=== PATIENT | male | born 1955 | race Caucasian/White ===

== ENCOUNTER 2017-11-24 04:28 | Inpatient (IN) | payer OTHER ==
[~2017-11-24] VITALS: Ht 175.3 cm; Wt 54.0 kg
[~2017-11-24 04:28] MED LIST changes: -NOVOLOG SUBQ
--- NOTE | 2017-11-24 04:46 | ER Report ---
History and Physical Time Seen By MD: 04:42 Hx. of Stated Complaint: PT HAD LOW BS OF 53 AT HOUSE. PT HAD SEIZURE. HPI/ROS CHIEF COMPLAINT: Seizure HISTORY OF PRESENT ILLNESS: EMS called for seizure witnessed by family duration unknown exact nature of seizure unknown however patient was incontinent of both urine and stool and convulsions did occur blood glucose was found to be 53 1 amp of D50 was administered and subsequent glucose was 294. No witnessed seizures by EMS. EMS found him to be in a postictal state. Patient is awake and talking now and has no complaints. REVIEW OF SYSTEMS: Constitutional: No fever, no chills. Eyes: No discharge. ENT: No sore throat. Cardiovascular: No chest pain, no palpitations. Respiratory: No cough, no shortness of breath. Gastrointestinal: No abdominal pain, no vomiting. Genitourinary: No hematuria. Musculoskeletal: No back pain. Skin: No rashes. Neurological: No headache. Allergies: Coded Allergies: No Known Drug Allergies (Verified , 11/24/17) Home Meds Active Scripts Cephalexin Monohydrate (CEPHALEXIN) 500 Mg Cap, 500 MG PO Q6H for 7 Days, #28 CAP 0 Refills Prov:CLAUDE LOYD MD 09/08/17 Reported Medications Folic Acid (FOLIC ACID) 0.4 Mg Tablet, 0.4 MG PO 09/08/17 Sodium Bicarbonate (SODIUM BICARBONATE) 650 Mg Tablet 09/08/17 Olmesartan Medoxomil (Olmesartan Medoxomil) 20 Mg Tablet 09/08/17 Hydrochlorothiazide (HYDROCHLOROTHIAZIDE) 25 Mg Tablet 09/08/17 Metoprolol Tartrate (METOPROLOL TARTRATE) 50 Mg Tab 09/08/17 Insulin Degludec (Tresiba Flextouch U-200) 200 Unit/Ml (3 Ml) Insuln.pen 09/08/17 Hx Smoking: Yes (1PPD) Exposure to Second Hand Smoke?: No Hx Substance Use Disorder: No Hx Alcohol Use: Yes Constitutional Vital Sign - Last 24 Hours 11/24/17 11/24/17 11/24/17 11/24/17 04:32 04:33 04:58 05:28 Temp 98.0 Pulse 69 69 63 Resp 18 B/P (MAP) 135/71 135/71 (92) Pulse Ox 90 93 91 O2 Delivery Room Air Physical Exam General Appearance: The patient is alert, has no immediate need for airway protection and no signs of toxicity. Overall well-appearing no signs of ongoing postictal state Eyes: Pupils equal and round no pallor or injection. ENT, Mouth: Mucous membranes are moist. Respiratory: There are no retractions, lungs are clear to auscultation. Cardiovascular: Regular rate and rhythm. No murmurs gallops or rubs Gastrointestinal: Abdomen is soft and non tender, no masses, bowel sounds normal. Neurological: And O 4, cranial nerves II-12 intact, normal gross motor exam normal gross sensory exam no cerebellar deficits appreciated. Skin: Warm and dry, no rashes. Musculoskeletal: Neck is supple non tender. Extremities are nontender, nonswollen and have full range of motion. No edema appreciated DIFFERENTIAL DIAGNOSIS: After history and physical exam differential diagnosis was considered for seizure, hypoglycemia, other electrolyte disturbance, no signs of intracranial mass or hemorrhage. This is a Partial list of diagnoses considered. Medical Decision Making Data Points Result Diagram: 11/24/17 0436 11/24/17 0436 Laboratory Hematology Test 11/24/17 04:36 Red Blood Count 3.30 M/uL (4.00-5.60) Mean Corpuscular Volume 97.5 fL (80.0-96.0) Mean Corpuscular Hemoglobin 31.5 pg (26.0-33.0) Mean Corpuscular Hemoglobin Concent 32.3 g/dL (32.0-36.0) Red Cell Distribution Width 15.6 % (11.5-14.5) Mean Platelet Volume 10.4 fL (7.2-11.1) Neutrophils (%) (Auto) 76.7 % (39.4-72.5) Lymphocytes (%) (Auto) 12.4 % (17.6-49.6) Monocytes (%) (Auto) 6.0 % (4.1-12.4) Eosinophils (%) (Auto) 4.0 % (0.4-6.7) Basophils (%) (Auto) 0.9 % (0.3-1.4) Nucleated RBC Relative Count (auto) 0.0 /100WBC Neutrophils # (Auto) 9.6 K/uL (2.0-7.4) Lymphocytes # (Auto) 1.6 K/uL (1.3-3.6) Monocytes # (Auto) 0.8 K/uL (0.3-1.0) Eosinophils # (Auto) 0.5 K/uL (0.0-0.5) Basophils # (Auto) 0.1 K/uL (0.0-0.1) Nucleated RBC Absolute Count (auto) 0.00 K/uL Sodium Level 143 mmol/L (137-145) Potassium Level 3.6 mmol/L (3.5-5.0) Chloride Level 111 mmol/L (98-107) Carbon Dioxide Level 19 mmol/L (22-30) Blood Urea Nitrogen 36 mg/dl (9-21) Creatinine 3.20 mg/dl (0.66-1.25) Glomerular Filtration Rate Calc 19.8 Random Glucose 100 mg/dl (75-110) Calcium Level 8.3 mg/dl (8.4-10.2) Total Bilirubin 0.2 mg/dl (0.2-1.3) Aspartate Amino Transf (AST/SGOT) 182 U/L (0-35) Alanine Aminotransferase (ALT/SGPT) 93 U/L (0-56) Alkaline Phosphatase 136 U/L (0-126) Troponin I < 0.012 ng/ml Total Protein 5.9 gm/dl (6.3-8.2) Albumin 3.6 g/dl (3.5-5.0) Serum Alcohol < 10 mg/dl Chemistry Test 11/24/17 04:36 White Blood Count 12.6 k/uL (4.5-11.0) Red Blood Count 3.30 M/uL (4.00-5.60) Hemoglobin 10.4 g/dL (14.0-18.0) Hematocrit 32.2 % (42.0-52.0) Mean Corpuscular Volume 97.5 fL (80.0-96.0) Mean Corpuscular Hemoglobin 31.5 pg (26.0-33.0) Mean Corpuscular Hemoglobin Concent 32.3 g/dL (32.0-36.0) Red Cell Distribution Width 15.6 % (11.5-14.5) Platelet Count 261 K/uL (150-450) Mean Platelet Volume 10.4 fL (7.2-11.1) Neutrophils (%) (Auto) 76.7 % (39.4-72.5) Lymphocytes (%) (Auto) 12.4 % (17.6-49.6) Monocytes (%) (Auto) 6.0 % (4.1-12.4) Eosinophils (%) (Auto) 4.0 % (0.4-6.7) Basophils (%) (Auto) 0.9 % (0.3-1.4) Nucleated RBC Relative Count (auto) 0.0 /100WBC Neutrophils # (Auto) 9.6 K/uL (2.0-7.4) Lymphocytes # (Auto) 1.6 K/uL (1.3-3.6) Monocytes # (Auto) 0.8 K/uL (0.3-1.0) Eosinophils # (Auto) 0.5 K/uL (0.0-0.5) Basophils # (Auto) 0.1 K/uL (0.0-0.1) Nucleated RBC Absolute Count (auto) 0.00 K/uL Glomerular Filtration Rate Calc 19.8 Calcium Level 8.3 mg/dl (8.4-10.2) Total Bilirubin 0.2 mg/dl (0.2-1.3) Aspartate Amino Transf (AST/SGOT) 182 U/L (0-35) Alanine Aminotransferase (ALT/SGPT) 93 U/L (0-56) Alkaline Phosphatase 136 U/L (0-126) Troponin I < 0.012 ng/ml Total Protein 5.9 gm/dl (6.3-8.2) Albumin 3.6 g/dl (3.5-5.0) Serum Alcohol < 10 mg/dl Toxicology Test 11/24/17 04:36 Serum Alcohol < 10 mg/dl EKG/Imaging EKG Interpretation EKG O4 55 my read normal sinus rhythm rate of 69 normal OK QRS and QTc intervals no ST or T-wave changes to suggest ischemia or infarction ED Course/Re-evaluation ED Course Multiple glucose readings in the 50s here despite D5 drip D50 boluses and oral orange juice, pending meal. 11/24/2017 6:55:32 am case discussed with hospitalist Dr. Hickey who is accepting for admission. Decision to Disposition Date: Nov 24, 2017 Decision to Disposition Time: 06:55 Depart Departure Latest Vital Signs Vital Signs Date Time Temp Pulse Resp B/P (MAP) Pulse Ox O2 Delivery O2 Flow Rate FiO2 11/24/17 05:28 63 91 11/24/17 04:33 135/71 (92) 11/24/17 04:32 98.0 18 Room Air Impression: Primary Impression: Hypoglycemia Additional Impression: Seizure Condition: Improved Disposition: Admitted from ER Problem Qualifiers SHEKHAR ORNELAS MD Nov 24, 2017 04:46
[2017-11-24] MEDS ORDERED: D5NS 500 ML BAG 500 ML IV PRN (04:55)
[2017-11-24] MEDS ORDERED: DEXTROSE 50% 50 ML SYR IVP ONE (04:55)
--- NOTE | 2017-11-24 05:01 | EKG ---
FACILITY: [facility] - [place] PATIENT NAME: ROSI DAY : [id number] MR: [id number] V: [id number] EXAM DATE: ORDERING PHYSICIAN: SHEKHAR ORNELAS TECHNOLOGIST: SOFÍA Test Reason : HTN Blood Pressure : / mmHG Vent. Rate : 069 BPM Atrial Rate : 069 BPM P-R Int : 168 ms QRS Dur : 106 ms QT Int : 434 ms P-R-T Axes : 059 061 070 degrees QTc Int : 465 ms Normal sinus rhythm Incomplete right bundle branch block Borderline ECG When compared with ECG of 19-FEB-2017 18:33, Questionable change in QRS axis Confirmed by KYM SPRINGER ([id number]) on 11/25/2017 3:03:14 PM Referred By: Confirmed By:KYM SPRINGER
[2017-11-24 05:17] LABS: PLATELET COUNT, AUTOMATED 261 K/uL (150-450)
--- NOTE | 2017-11-24 05:38 | RADIOLOGY IMAGING REPORT ---
FACILITY: [facility] - [place] PATIENT NAME: Miguel Dhillon : 1955 MR: [id number] V: [id number] EXAM DATE: ORDERING PHYSICIAN: SHEKHAR ORNELAS TECHNOLOGIST: Location: [facility] [place] Patient: Miguel Dhillon : 1955 Visit/Account:[id number] Date of Sevice: 11/24/2017 EXAMINATION: Head CT without intravenous contrast History: Seizure TECHNIQUE: Contiguous axial images were obtained from the skull base to the vertex without intraven ous contrast. One of the following dose optimization techniques was utilized in the performance of th is exam: Automated exposure control; adjustment of the mA and/or kV according to the patient's size; or use of an iterative reconstruction technique. Specific details can be referenced in the facility 's radiology CT exam operational policy. COMPARISON STUDIES: 04/18/2010 FINDINGS: Visualized mastoid air cells / paranasal sinuses: negative Calvarium and scalp: negative White matter: negative Dural venous sinuses / arterial structures: negative Ventricles / sulci / fissures: negative Masses / hemorrhage / midline shift: negative Extra-axial spaces: negative IMPRESSION: Normal head CT. No evidence of a mass, acute ischemia or hemorrhage. Report Dictated By: Jarod Sellers MD at 11/24/2017 5:31 AM Report E-Signed By: Jarod Sellers MD at 11/24/2017 5:34 AM WSN:[id number]
[2017-11-24] MEDS ORDERED: EMS NS 0.9%(*) 1000 ML BAG 1,000 ML IV ONE (07:00)
[2017-11-24] MEDS ORDERED: NICOTINE 21 MG/24 HR PATCH TD ONE (07:25)
[2017-11-24 08:24] VITALS: BP 142/75
[2017-11-24 08:26] VITALS: Ht 175.3 cm; Wt 54.0 kg
--- NOTE | 2017-11-24 08:43 | Medical Nutrition Therapy ---
Nutrition Anthropometrics Height (Inches): 69.00 Height (Calculated Centimeters: 175.065575 Weight (Pounds): 135 Weight (Calculated Kilograms): 61.490 BMI Calculated: 19.93 Juan Ramon Nutrition Score: Juan Ramon Nutrition Risk Score: Dietary Referral Nutrition Risk Factors: Special Diet Nutrition Risk Comment: insulin dependent diabetic Physical Findings Physical Appearance: WNR Skin Appearance Skin Appearance: Edema Edema Location Modifier: Edema Location: Type of Edema: Degree of Edema: Gastrointestinal Symptoms GI Symtoms: Tube Present: Bowel Sounds: Recent Bowel Pattern: Stool Characteristics: Nutrition/Food History No Significant Nutr. HX Nutritional Diagnosis Nutritional Risk Acuity 2: Chronic Renal Failure Past Medical History: T2DM, HTN, CKD Nutritional Acuity: 2-Moderate Nutrition Diagnosis: Inappropriate Carb Intake Nutrition Etiology: Physiological Causes Nutrition Problem/Etiology/Sym: Inconsistent Carbohydrate Intake related to Physiological causes requiring careful timing and consistency in the amount of carbohydrate, e.g., diabetes mellitus with insulin therapy and CKD AEB current hospital admission for hypoglycemia (Glucose 53) and hypoglycemia documented on regular basis. Energy Requirement: 2250 (Mora-St Jeor: Actual BW X 1.6) Protein Requirement: 61 (Actual BW Kg X .8) Fluid Requirement: 2250 Diet Type: Diet as Tolerated JANETT/REG Nutrition Intervention: Cont diet as ordered Nutrition Monitoring & Eval Nutrition Goals: Eat 75-100% Meal RD Patient Assessment Time: [address] Assessment Type: RD Assessment Patient Nutrition Acuity: 2-Moderate Follow Up Date: Nov 26, 2017 Nutritional Comment: Pt admitted for hypoglycemia and seizure. Within normal wt range with BMI of 19.93. Low H/H, Alb 3.6, Glu 86, High AST/ALT/Alk Phos, High BUN/Creat. Due to repeated occurances of Hypoglycemia, pt may benefit from permanent Continuous Glucose Monitoring (CGM) device. Receiving JANETT with no reports of intake. Follow intake, labs, etc. HERMAN CASAS Nov 24, 2017 08:43
[2017-11-24] MEDS ORDERED: D5NS(*) 1000 ML BAG 1,000 ML IV PRN (10:15)
[2017-11-24] MEDS ORDERED: ACETAMINOPHEN 325 MG TAB PO PRN (10:15)
[2017-11-24] MEDS ORDERED: ONDANSETRON 4 MG/2 ML VIAL IVP PRN (10:15)
[2017-11-24] MEDS ORDERED: METOPROLOL SUCC XL 25 MG TABCR PO ONE (10:45)
[2017-11-24] MEDS ORDERED: SODIUM BICARBONATE 650 MG TAB PO ONE (10:45)
[2017-11-24] MEDS: INSULIN HUMAN LISPRO SLIDING SCALE SUBQ PRN ×3 (14:18→19:56)
[2017-11-24 14:22] VITALS: BP 131/96
[2017-11-24 15:35] VITALS: BP 154/70
[2017-11-24 19:44] VITALS: BP 144/72
--- NOTE | 2017-11-24 20:38 | History & Physical ---
History of Present Illness Chief Complaint Witnessed seizure due to hypoglycemia History of Present Illness Mr. Dhillon is a 62 y.o. male with significant PMH of HTN, DM-II and CKD stage 4 due to Diabetic Nephropathy.EMS was called for witnessed seizure by family. Patient was sleeping and had hypoglycemic episode and as per family he had seizure duration unknown and exact nature of seizure unknown however patient was incontinent of both urine and stool and convulsions did occur. His blood glucose was found to be 53 in the ER and he received 1 amp of D50 and subsequent glucose was 294. No witnessed seizures by EMS. EMS found him to be in a postictal state. He was placed on D5 drip for his repeated hypoglycemic episodes. I discussed the case wit the ER-MD and admitted the patient for further evaluation and management Currently patient is awake and talking now and has no complaints. History Home Meds Reported Medications Folic Acid (FOLIC ACID) 0.4 Mg Tablet, 0.4 MG PO DAILY 09/08/17 Sodium Bicarbonate (SODIUM BICARBONATE) 650 Mg Tablet, 650 MG PO BID 09/08/17 Hydrochlorothiazide (HYDROCHLOROTHIAZIDE) 25 Mg Tablet, 1 TAB PO DAILY 09/08/17 Metoprolol Tartrate (METOPROLOL TARTRATE) 50 Mg Tab, 50 MG PO BID 09/08/17 Insulin Degludec (Tresiba Flextouch U-200) 200 Unit/Ml (3 Ml) Insuln.pen, 12 UNITS SC QAM 09/08/17 Discontinued Reported Medications Olmesartan Medoxomil (Olmesartan Medoxomil) 20 Mg Tablet 09/08/17 Discontinued Scripts Cephalexin Monohydrate (CEPHALEXIN) 500 Mg Cap, 500 MG PO Q6H for 7 Days, #28 CAP 0 Refills Prov:CLAUDE LOYD MD 09/08/17 Allergies: Coded Allergies: No Known Drug Allergies (Verified , 11/24/17) Patient History: Diabetes mellitus FATHER, Age:82 FH: back pain FATHER, Age:82 No pertinent family history MOTHER, Age:83 CHILD CHILD Hx Smoking: Yes Smoking Status: Current: Every Day Smoker, Heavy Tobacco Smoker Exposure to Second Hand Smoke?: Yes Caffeine Intake: Coffee Caffeine/Cups Per Day: 2C/day Hx Alcohol Use: Yes Hx Substance Use Disorder: No Review of Systems Constitutional: Night Sweats, No Fever, No Weight Loss, No Weight Gain, No Chills Neurological: No Syncope, No Confusion, No Weakness, No Dizziness, No Slurred Speech Cardiovascular: No Chest Pain, No Palpitations Respiratory: No Shortness of Breath, No Cough Gastrointestinal: Nausea, No Vomiting, No Diarrhea, No Abdominal Pain Genitourinary: No Dysuria, No Hematuria Musculoskeletal: No Pain, No Sprain, No Strain Psychiatric: No Depression, No Anxiety Exam Vital Signs Vital Signs Date Time Temp Pulse Resp B/P (MAP) Pulse Ox O2 Delivery O2 Flow Rate FiO2 11/24/17 19:44 98.3 64 16 144/72 (96) 94 Room Air General Appearance: Alert, Awake, No Acute Distress, Afebrile Neuro: No Gross deficits Eyes: PERRLA ENT: Normal Cardiovascular: Normal Rhythm & Peripheral Pulses Respiratory: No Respiratory Distress GI: Abd Soft and Non-Tender : Normal Extremities: Soft and Non Tender Integumentary: Skin Intact without Lesion / Mass Psych: Alert & Oriented X3, Appropriate Mood & Affect Medical Decision Making Data Points Result Diagram: 11/24/17 0436 11/24/17 0436 EKG / Imaging Imaging reviewed Pre-Admit Course ED Medications reviewed Medical Record Review: Yes Assessment and Plan Problems: (1) Seizure Status: Acute Assessment & Plan: His repeated hypoglycemic episodes on his insulin dose are due to his worsening kidney function. He has CKD-stage 4 and GFR is 20ml/min Patient is seizure free and denies any complaint. His appetite is good and no N/ V/D/C/CP/SOB etc. He is on D5W at 100ml/h and I will stop once BS improves. I have stopped his Insulin and cover him with Humolog sliding scale for now. (2) Hypoglycemia Status: Acute Assessment & Plan: His hypoglycemia is due to his worsening kidney function and i will continue to hold his long acting Insulin and cover with regular insulin.I will use D5W until his sugar stabilizes. I will get C-Peptide, A1C, CBC and BMP in am (3) CKD (chronic kidney disease) Status: Chronic Assessment & Plan: He has CKD-stage 4 likely due to his underlying DM. I need to check his proteinuria . If proteinuria is in nephrotic range then he has Diabetic Nephropathy (4) Insulin dependent diabetes mellitus Status: Chronic Assessment & Plan: I will hold his long acting Insulin for now and cover with Humolog Central Venous Access Medical Necessity for Access: IV Access, Medication Administration Condition Guarded Time Spent on Plan of Care: > 30 min Copies to: HOWIE CHAMBERS MD Venous Thromboembolism VTE Risk Physician Assess for VTE Risk: Yes Patient's VTE Risk: Low VTE Diagnostic Test 2 Days Prior to Admit: No Antithrombotics Is Pt On Any Antithrombotics?: No Exam Sepsis Risk: No Definite Risk WES JJ MD Nov 24, 2017 20:38
[2017-11-24] MEDS: SODIUM BICARBONATE 650 MG TAB PO SCH (20:49)
[2017-11-25 02:20] VITALS: BP 130/67
[2017-11-25 06:10] LABS: PLATELET COUNT, AUTOMATED 227 K/uL (150-450)
[2017-11-25 08:31] VITALS: BP 128/78
[2017-11-25] MEDS: SODIUM BICARBONATE 650 MG TAB PO SCH (08:31)
[2017-11-25] MEDS ORDERED: METOPROLOL SUCC XL 25 MG TABCR PO SCH (09:00)
[2017-11-25] MEDS ORDERED: NOVOLOG SUBQ (11:24)
--- NOTE | 2017-11-25 11:32 | Hospitalist Depart ---
Discharge Summary Reason for Hosp/Final Diag: (1) Hypoglycemia Status: Acute Hospital Course & Plan: He presented with a blood sugar in the 50's and was slow to recover from this. He did require treatment with dextrose, but is now maintaining his levels without support. (2) DM2 (diabetes mellitus, type 2) Hospital Course & Plan: He was on treatment with Tresiba, but this has been discontinued. We instructed him to use his NovoLog on a sliding scale and record his levels over the next several days. He will bring a copy of his blood sugars to his primary physician prior to restarting the Tresiba. It may be that he is having difficulty clearing the long acting insulin because of his worsening renal disease. (3) Acute renal failure Hospital Course & Plan: He did have a creatinine above his baseline on admission. This has improved with hydration. (4) Chronic kidney disease (CKD) stage G3b/A1, moderately decreased glomerular filtration rate (GFR) between 30-44 mL/min/1.73 square meter and albuminuria creatinine ratio less than 30 mg/g Departure Latest Vital Signs Vital Signs 11/25/17 08:31 Temp 98.8 Pulse 70 Resp 18 B/P (MAP) 128/78 (95) Pulse Ox 93 O2 Delivery Room Air Weight (Pounds): 119 Weight (Ounces): 9.0 Result Diagram: 11/25/1755011/25/17550 Condition: Improved Discharge: Home, Self Care Discharge Instructions Home Meds Active Scripts Insulin Aspart (NOVOLOG) 100 Unit/Ml Soln, 1-5 UNIT SUBQ ACHS, #10 ML FOR GLU 150-200 GIVE 1 UNIT FOR GLU 201-250 GIVE 2 UNITS FOR GLU 251-300 GIVE 3 UNITS FOR GLU 301-350 GIVE 4 UNITS FOR GLU OVER 350 GIVE 5 UNITS Prov:KYM SPRINGER DO 11/25/17 Reported Medications Folic Acid (FOLIC ACID) 0.4 Mg Tablet, 0.4 MG PO DAILY 09/08/17 Sodium Bicarbonate (SODIUM BICARBONATE) 650 Mg Tablet, 650 MG PO BID 09/08/17 Hydrochlorothiazide (HYDROCHLOROTHIAZIDE) 25 Mg Tablet, 1 TAB PO DAILY 09/08/17 Metoprolol Tartrate (METOPROLOL TARTRATE) 50 Mg Tab, 50 MG PO BID 09/08/17 Discontinued Reported Medications Insulin Degludec (Tresiba Flextouch U-200) 200 Unit/Ml (3 Ml) Insuln.pen, 12 UNITS SC QAM 09/08/17 Olmesartan Medoxomil (Olmesartan Medoxomil) 20 Mg Tablet 09/08/17 Discontinued Scripts Cephalexin Monohydrate (CEPHALEXIN) 500 Mg Cap, 500 MG PO Q6H for 7 Days, #28 CAP 0 Refills Prov:CLAUDE LOYD MD 09/08/17 Diet: Diabetic Activity: As Tolerated Copies to: CONSUELO MOORE DO Venous Thromboembolism Antithrombotics Is Pt On Any Antithrombotics?: No KYM SPRINGER DO Nov 25, 2017 11:32
== END 2017-11-25 12:07 | disposition home or self-care (01) | DRG 639 ==
LOC: ER 04:33 → MED 07:19
PROVIDERS: ADMIT Specialist; ATTEND Specialist
DX: E11.649 Type 2 diabetes mellitus with hypoglycemia without coma (principal); E11.22 Type 2 diabetes mellitus with diabetic chronic kidney disease; I12.9 Hypertensive chronic kidney disease with stage 1 through stage 4 chronic kidney disease, or unspecified chronic kidney disease; E11.21 Type 2 diabetes mellitus with diabetic nephropathy; N18.4 Chronic kidney disease, stage 4 (severe); N17.9 Acute kidney failure, unspecified; R56.9 Unspecified convulsions; F17.210 Nicotine dependence, cigarettes, uncomplicated; E11.40 Type 2 diabetes mellitus with diabetic neuropathy, unspecified; Y92.003 Bedroom of unspecified non-institutional (private) residence as the place of occurrence of the external cause; Z79.4 Long term (current) use of insulin
CPT/HCPCS: 36415; 36416; 70450; 80320; 81001; 82040; 82247; 82310; 82374; 82435; 82565; 82570; 82947; 82948; 83036; 83519; 84075; 84132; 84155; 84156; 84295; 84450; 84460; 84484; 84520; 84681; 85025; 93005; 96361; 96374; 99285; J7042

== ENCOUNTER → 2017-11-24 | Outpatient (CLI) | payer OTHER ==
[~2017-11-24] MED LIST: AMLO-99 PO; CEPH-13 PO; CEPH500C24 PO; CLIN300C99 PO; FOLI0.4T56 PO; HYDR-2966 PO; INSU100C12 SQ; INSU100C14 SQ; INSU100V30 SQ; INSU200I4 SC; LISI-374 PO; LOR5/325 PO; METO-253 PO; METO25TA93 PO; NICO-180 TD; NOVOLOG SUBQ; OLME1TAB67 PO; OLME1TAB73 PO; OLME20TA3; OLME40TA28 PO; SODI650T7 PO; TRAM-420 PO; VITA-324 PO; [UNRECOGNIZED DRUG - CODE]
[2017-11-24 08:26] VITALS: BMI 19.9
== END ==
LOC: AMB 04:00
PROVIDERS: ATTEND Nurse Practitioner
DX: R56.9 Unspecified convulsions (principal); E11.649 Type 2 diabetes mellitus with hypoglycemia without coma; R41.82 Altered mental status, unspecified; R32 Unspecified urinary incontinence
CPT/HCPCS: A0425; A0427

== ENCOUNTER 2017-11-27 14:31 | Outpatient (RCR) | payer OTHER ==
[2017-11-24 08:26] VITALS: BMI 19.9
[~2017-11-27 14:31] MED LIST changes: +NOVOLOG SUBQ
--- NOTE | 2017-11-27 19:13 | Transitional Care Management ---
Assessment Visit Type: Telephone Visit Spoke with: Miguel GI: Nutrition: WNL GI Comment: 2 BS "high". 150, 270 last mallory, 290 before supper tonite. reports SSI doses correctly. writes numbers down for PCP visit. Eats sandwich for hs snack. Stopped tresiba. Musculoskeletal, Exercise: WNL Feeling of Well Being: WNL Feeling of Well Being Comment: 2 return to work today Community Resources/C: 1/2 MD appt end of this week or early next week Questions for Future PCP Visit: 1/2 restart tresiba at lower dose or increase SSI doses of novolog. TCM Discharge Criteria Medication Knowledge: 1/2 verbalize SSI doses, doing BS qid and prn Disease Management/Concern/Wha: 1/2 states he gets shaky with low bs, knows to eat, drink juice or take a destrose tab. Transitional Care Comment: 11/24 Mr Dhillon needs re enforcement and support with his smoking and diet. 1/2 feels "wonderful" and able to return to work today. Enc to make f/u appt. verbalized med changes and s/s to watch for low bs. eating routinely and william hs snack since that is when bs goes low most often MARLYS GORE Nov 27, 2017 19:13
--- NOTE | 2017-12-01 16:52 | Transitional Care Management ---
Assessment GI: Nutrition: WNL GI Comment: 11/27 BS "high". 150, 270 last mallory, 290 before supper tonite. reports SSI doses correctly. writes numbers down for PCP visit. Eats sandwich for hs snack. Stopped tresiba. Musculoskeletal, Exercise: WNL Feeling of Well Being: WNL Feeling of Well Being Comment: 11/27 return to work today Community Resources/[facility]: 11/27 MD appt end of this week or early next week Questions for Future PCP Visit: /2 restart tresiba at lower dose or increase SSI doses of novolog. TCM Discharge Criteria Medication Knowledge: 1/2 verbalize SSI doses, doing BS qid and prn Disease Management/Concern/Wha: 1/2 states he gets shaky with low bs, knows to eat, drink juice or take a destrose tab. Transitional Care Comment: 11/24 Mr Dhillon needs re enforcement and support with his smoking and diet. 1/2 feels "wonderful" and able to return to work today. Enc to make f/u appt. verbalized med changes and s/s to watch for low bs. eating routinely and william hs snack since that is when bs goes low most often 12/01 unable to contact JANIS MITCHELL Dec 01, 2017 16:52
--- NOTE | 2017-12-04 14:36 | Transitional Care Management ---
Assessment Visit Type: Telephone Visit Spoke with: Miguel Respiratory: WNL GI: Nutrition: WNL GI Comment: 11/27 BS "high". 150, 270 last mallory, 290 before supper tonite. reports SSI doses correctly. writes numbers down for PCP visit. Eats sandwich for hs snack. Stopped tresiba. 12/04 BS around 300, knows his sliding scale. I encouraged him to call Dr Moore's office about his sugars. : WNL Musculoskeletal, Exercise: WN Musculoskeletal, Excercise Com: 12/04 He has been walking everyday. Feeling of Well Being: WN Feeling of Well Being Comment: 11/27 return to work today 12/04 He feels good, but the sugars are high. Socialization: [facility] Socialization Comment: 12/04 At work. Community Resources/[facility]: 11/27 MD appt end of this week or early next week Questions for Future PCP Visit: 11/27 restart tresiba at lower dose or increase SSI doses of novolog. 12/04 Sliding scale insulin adjustment? Following Discharge Instructio: Yes TCM Discharge Criteria Medication Knowledge: 12 verbalize SSI doses, doing BS qid and prn Disease Management/Concern/Wha: 12 states he gets shaky with low bs, knows to eat, drink juice or take a destrose tab. Transitional Care Comment: 11/24 Mr Dhillon needs re enforcement and support with his smoking and diet. 1/2 feels "wonderful" and able to return to work today. Enc to make f/u appt. verbalized med changes and s/s to watch for low bs. eating routinely and william hs snack since that is when bs goes low most often 12/01 unable to contact 12/04 He feels good. Blood sugars around 300. He will let Dr Moore know. Copies to: CONSUELO MOORE MICHAEL K Dec 04, 2017 14:36
--- NOTE | 2017-12-11 14:19 | Transitional Care Management ---
Assessment Respiratory: WNL GI: Nutrition: WN GI Comment: 11/27 BS "high". 150, 270 last mallory, 290 before supper tonite. reports SSI doses correctly. writes numbers down for PCP visit. Eats sandwich for hs snack. Stopped tresiba. 12/04 BS around 300, knows his sliding scale. I encouraged him to call Dr Moore's office about his sugars. 12/10 BS running [phone] at times. "Been trying to cover with the Novolog wondering if I should use the Tresiba also?" I asked him to PLEASE call Dr Moore when we hung up. He said he would. In fact he has not made a DC appt. I repeated and asked him to call Dr Laureano. Working on diet-"It is difficult" : WN Musculoskeletal, Exercise: [facility] Musculoskeletal, Excercise Com: 12/04 He has been walking everyday. Mobility/Falls: [facility] Mobility Comment: 12/10 Working 8 hours daily. Feeling of Well Being: [facility] Feeling of Well Being Comment: 11/27 return to work today 12/04 He feels good, but the sugars are high. Socialization: [facility] Socialization Comment: 12/04 At work. Community Resources/[facility]: 11/27 MD appt end of this week or early next week 12/10 Has not made an appt with Dr. Moore. I enc him to call now and get in to see him. Questions for Future PCP Visit: 11/27 restart tresiba at lower dose or increase SSI doses of novolog. 12/04 Sliding scale insulin adjustment? Following Discharge Instructio: Yes TCM Discharge Criteria Medication Knowledge: 2 verbalize SSI doses, doing BS qid and prn 12/10 knows meds Disease Management/Concern/Wha: 12 states he gets shaky with low bs, knows to eat, drink juice or take a destrose tab. 12/10 went over the SX&SX of hyper/hypoglycemia Transitional Care Comment: 11/24 Mr Dhillon needs re enforcement and support with his smoking and diet. 1/2 feels "wonderful" and able to return to work today. Enc to make f/u appt. verbalized med changes and s/s to watch for low bs. eating routinely and william hs snack since that is when bs goes low most often 12/01 unable to contact 12/04 He feels good. Blood sugars around 300. He will let Dr Moore know. 12/10 Working-still has not contacted Dr. Moore. Working on diet. Smoking is another matter.He told me that he will call Susan when we hung up! Copies to: CONSUELO MOORE JOAN Dec 11, 2017 14:19
--- NOTE | 2017-12-18 18:44 | Transitional Care Management ---
Assessment Visit Type: Telephone Visit Respiratory: WNL GI: Nutrition: WNL GI Comment: 11/27 BS "high". 150, 270 last mallory, 290 before supper tonite. reports SSI doses correctly. writes numbers down for PCP visit. Eats sandwich for hs snack. Stopped tresiba. 12/04 BS around 300, knows his sliding scale. I encouraged him to call Dr Davis's office about his sugars. 12/10 BS running [phone] at times. "Been trying to cover with the Novolog wondering if I should use the Tresiba also?" I asked him to PLEASE call Dr Davis when we hung up. He said he would. In fact he has not made a DC appt. I repeated and asked him to call Dr Laureano. Working on diet-"It is difficult" 12/18 had appt with PCP last week. He resumed tresiba at half the dose (6 unit) that he was previously on. BS less than 200 consistently but over 85. Eating 3 meals and hs snack daily. REminded to keep life saver or other candy for use if he feels shaky (his only sx of low bs in the past) : WNL Musculoskeletal, Exercise: WN Musculoskeletal, Excercise Com: 12/04 He has been walking everyday. 12/18 consistent activity but, not much due to cold. reminded this will bring down his BS Mobility/Falls: WNL Mobility Comment: 12/10 Working 8 hours daily. Integumentary Comment: 12/18 states he has some tingling in his toes for a long time. reminded to check feet daily for sores as they can be unfelt and lead to infection quickly Feeling of Well Being: WNL Feeling of Well Being Comment: 11/27 return to work today 12/04 He feels good, but the sugars are high. 12/18 "I feel wonderful" , BS are better now Socialization: WNL Socialization Comment: 12/04 At work. Community Resources/[facility]: 11/27 MD appt end of this week or early next week 12/10 Has not made an appt with Dr. Davis. I enc him to call now and get in to see him. 12/18 reports he saw PCP last week and has f/u on 12/25 for A1C. Questions for Future PCP Visit: 11/27 restart tresiba at lower dose or increase SSI doses of novolog. 12/04 Sliding scale insulin adjustment? Following Discharge Instructio: Yes TCM Discharge Criteria Medication Knowledge: 11/27 verbalize SSI doses, doing BS qid and prn 12/10 knows meds 12/18 reports new tresiba dose is 1/2 previous dose at 6 units and still using SSI Disease Management/Concern/Wha: 11/27 states he gets shaky with low bs, knows to eat, drink juice or take a destrose tab. 12/10 went over the SX&SX of hyper/hypoglycemia Red/Yellow Flags: s/s hypoglycemia Transitional Care Comment: 11/24 Mr Dhillon needs re enforcement and support with his smoking and diet. 11/27 feels "wonderful" and able to return to work today. Enc to make f/u appt. verbalized med changes and s/s to watch for low bs. eating routinely and william hs snack since that is when bs goes low most often 12/01 unable to contact 12/04 He feels good. Blood sugars around 300. He will let Dr Davis know. 12/10 Working-still has not contacted Dr. Davis. Working on diet. Smoking is another matter.He told me that he will call Susan when we hung up! 12/18 has had f/u with PCP, adjusted insulin per instruction and has more controlled BS. Is happy with his progress and taking care of himself MARLYS GORE Dec 18, 2017 18:44
--- NOTE | 2017-12-26 12:02 | Transitional Care Management ---
Assessment Visit Type: Telephone Visit (12/26 Miguel) Respiratory: WNL GI: Nutrition: WNL GI Comment: 11/27 BS "high". 150, 270 last mallory, 290 before supper tonite. reports SSI doses correctly. writes numbers down for PCP visit. Eats sandwich for hs snack. Stopped tresiba. 12/04 BS around 300, knows his sliding scale. I encouraged him to call Dr Moore's office about his sugars.12/[address] Moore this AM- BS still running just under 200 . adjusted his insulin again and Miguel is to see him in 1 week. Eating 3 diabetic meals a day and 2 snacks 1000 and HS> 12/10 BS running [phone] at times. "Been trying to cover with the Novolog wondering if I should use the Tresiba also?" I asked him to PLEASE call Dr Moore when we hung up. He said he would. In fact he has not made a DC appt. I repeated and asked him to call Dr Laureano. Working on diet-"It is difficult" 12/18 had appt with PCP last week. He resumed tresiba at half the dose (6 unit) that he was previously on. BS less than 200 consistently but over 85. Eating 3 meals and hs snack daily. REminded to keep life saver or other candy for use if he feels shaky (his only sx of low bs in the past) : WNL Musculoskeletal, Exercise: WNL Musculoskeletal, Excercise Com: 12/04 He has been walking everyday. 12/18 consistent activity but, not much due to cold. reminded this will bring down his BS Mobility/Falls: [facility]NL Mobility Comment: 12/10 Working 8 hours daily. 12/26 Working daily and keeping busy Integumentary Comment: 12/18 states he has some tingling in his toes for a long time. reminded to check feet daily for sores as they can be unfelt and lead to infection quickly 12/26 checking feet nightly before bed- no changes. Feeling of Well Being: WNL Feeling of Well Being Comment: 11/27 return to work today 12/04 He feels good, but the sugars are high. 12/18 "I feel wonderful" , BS are better now 12/26 Feeling pretty good. Wish he could get BS lower- but working on them." Socialization: WNL Socialization Comment: 12/04 At work. Community Resources/[facility]: 11/27 MD appt end of this week or early next week 12/10 Has not made an appt with Dr. Moore. I enc him to call now and get in to see him. 12/18 reports he saw PCP last week and has f/u on 12/25 for A1C. 12/26 saw Susan this AM and to FU in 1 week Questions for Future PCP Visit: 11/27 restart tresiba at lower dose or increase SSI doses of novolog. 12/04 Sliding scale insulin adjustment? Following Discharge Instructio: Yes TCM Discharge Criteria Medication Knowledge: 11/27 verbalize SSI doses, doing BS qid and prn 12/10 knows meds 12/18 reports new tresiba dose is 1/2 previous dose at 6 units and still using SSI Disease Management/Concern/Wha: 11/27 states he gets shaky with low bs, knows to eat, drink juice or take a destrose tab. 12/10 went over the SX&SX of hyper/hypoglycemia Red/Yellow Flags: s/s hypoglycemia Transitional Care Comment: 11/24 Mr Dhillon needs re enforcement and support with his smoking and diet. 11/27 feels "wonderful" and able to return to work today. Enc to make f/u appt. verbalized med changes and s/s to watch for low bs. eating routinely and william hs snack since that is when bs goes low most often 12/01 unable to contact 12/04 He feels good. Blood sugars around 300. He will let Dr Moore know. 12/10 Working-still has not contacted Dr. Moore. Working on diet. Smoking is another matter.He told me that he will call Susan when we hung up! 12/18 has had f/u with PCP, adjusted insulin per instruction and has more controlled BS. Is happy with his progress and taking care of himself 12/26 Susan made adjustment to insulin this AM d/t BS still running close to 200.To see in one week. Smoking still an issue but also working on cessaton. Feels like he is improving. Copies to: CONSUELO MOORE JOAN Dec 26, 2017 12:02
--- NOTE | 2018-01-01 14:20 | Transitional Care Management ---
Assessment Visit Type: Telephone Visit Spoke with: Miguel Respiratory: [facility] Respiratory Comment: 01/01 still "working on" quitting smoking. review se of heart disese and that he has HTN. gave number for 1-800 quitnow line. states only smoking 1/2 cig at a time and benjie quit when hes ready. GI: Nutrition: WNL GI Comment: 11/27 BS "high". 150, 270 last mallory, 290 before supper tonite. reports SSI doses correctly. writes numbers down for PCP visit. Eats sandwich for hs snack. Stopped tresiba. 12/04 BS around 300, knows his sliding scale. I encouraged him to call Dr Davis's office about his sugars.12/[address] Davis this AM- BS still running just under 200 . adjusted his insulin again and Miguel is to see him in 1 week. Eating 3 diabetic meals a day and 2 snacks 1000 and HS> 1/15 BS running [phone] at times. "Been trying to cover with the Novolog wondering if I should use the Tresiba also?" I asked him to PLEASE call Dr Davis when we hung up. He said he would. In fact he has not made a DC appt. I repeated and asked him to call Dr Laureano. Working on diet-"It is difficult" 12/18 had appt with PCP last week. He resumed tresiba at half the dose (6 unit) that he was previously on. BS less than 200 consistently but over 85. Eating 3 meals and hs snack daily. REminded to keep life saver or other candy for use if he feels shaky (his only sx of low bs in the past) 01/01 BS avg 150-170. increase tresiba to 8 unit and has to call tomorrow with his BS numbers to f/u. Eating 3 meals and snacks. has glucose tabs handy if he gets shaky. reports getting up daily at 3am to check bs. lasttime he didn't get up was the day he was admitted : MARIAM Musculoskeletal, Exercise: MARIAM Musculoskeletal, Excercise Com: 12/04 He has been walking everyday. 12/18 consistent activity but, not much due to cold. reminded this will bring down his BS 01/01 reports little activity as he sits all day. reminded that ac tivity witll decrease bs Mobility/Falls: WNL Mobility Comment: 12/10 Working 8 hours daily. 12/26 Working daily and keeping busy Integumentary Comment: 12/18 states he has some tingling in his toes for a long time. reminded to check feet daily for sores as they can be unfelt and lead to infection quickly 12/26 checking feet nightly before bed- no changes. Feeling of Well Being: WNL Feeling of Well Being Comment: 11/27 return to work today 12/04 He feels good, but the sugars are high. 12/18 "I feel wonderful" , BS are better now 12/26 Feeling pretty good. Wish he could get BS lower- but working on them." 01/01 proud of his decreasing bs but, wants them little lower. Stresser in his life is his aging Dad with DM and he moved home to help his parents Socialization: WN Socialization Comment: 12/04 At work. Community Resources/[facility]: 11/27 MD appt end of this week or early next week 12/10 Has not made an appt with Dr. Davis. I enc him to call now and get in to see him. 12/18 reports he saw PCP last week and has f/u on 12/25 for A1C. 12/26 saw Susan this AM and to FU in 1 week 01/01 states his f/u is by phone tomorrow to review BS Questions for Future PCP Visit: 11/27 restart tresiba at lower dose or increase SSI doses of novolog. 12/04 Sliding scale insulin adjustment? Following Discharge Instructio: Yes TCM Discharge Criteria Medication Knowledge: 11/27 verbalize SSI doses, doing BS qid and prn 12/10 knows meds 12/18 reports new tresiba dose is 1/2 previous dose at 6 units and still using SSI 01/01 reports change in tresiba to 8 units and monitoring bs /reporting bs to MD for change Disease Management/Concern/Wha: 11/27 states he gets shaky with low bs, knows to eat, drink juice or take a destrose tab. 12/10 went over the SX&SX of hyper/hypoglycemia Red/Yellow Flags: s/s hypoglycemia Transitional Care Comment: 11/24 Mr Dhillon needs re enforcement and support with his smoking and diet. 11/27 feels "wonderful" and able to return to work today. Enc to make f/u appt. verbalized med changes and s/s to watch for low bs. eating routinely and william hs snack since that is when bs goes low most often 12/01 unable to contact 12/04 He feels good. Blood sugars around 300. He will let Dr Davis know. 12/10 Working-still has not contacted Dr. Davis. Working on diet. Smoking is another matter.He told me that he will call Susan when we hung up! 12/18 has had f/u with PCP, adjusted insulin per instruction and has more controlled BS. Is happy with his progress and taking care of himself 12/26 Susan made adjustment to insulin this AM d/t BS still running close to 200.To see in one week. Smoking still an issue but also working on cessaton. Feels like he is improving. / feels hes managing bs well by eating right, taking bs even at 3am and working with . Feels its time to dc from [facility] program MARLYS GORE Jan 01, 2018 14:20
== END 2018-01-02 06:54 | disposition home or self-care (01) ==
LOC: TCM 14:31
PROVIDERS: ATTEND Nurse Practitioner
DX: Z02.9 Encounter for administrative examinations, unspecified (principal)

== ENCOUNTER 2018-01-20 11:48 | Emergency (ER) | payer OTHER ==
[2017-11-24 08:26] VITALS: Wt 56.7 kg
[2018-01-20 11:53] VITALS: BP 144/76
--- NOTE | 2018-01-20 11:53 | ER Report ---
History and Physical Time Seen By MD: 11:52 HPI/ROS CHIEF COMPLAINT: Low blood sugar HISTORY OF PRESENT ILLNESS: Patient is a 62-year-old male with past medical history significant for hypertension, history of type II diabetes and chronic kidney disease stage IV due to diabetic nephropathy. Patient is brought to the emergency department by EMS for episode of hypoglycemia. Patient took his insulin this morning but did not eat a meal. He became agitated and combative. Mother called 911. Prehospital personnel arrived and found a blood sugar that was less than 20. He was administered one half amp of D50 and i mg of glucagon. He had rapid return to baseline mental status currently he feels well and has no planar concern. REVIEW OF SYSTEMS: Constitutional: No fever, no chills. Eyes: No discharge. ENT: No sore throat. Cardiovascular: No chest pain, no palpitations. Respiratory: No cough, no shortness of breath. Gastrointestinal: No abdominal pain, no vomiting. Genitourinary: No hematuria. Musculoskeletal: No back pain. Skin: No rashes. Neurological: No headache. Allergies: Coded Allergies: No Known Drug Allergies (Verified , 01/20/18) Home Meds Active Scripts Insulin Aspart (NOVOLOG) 100 Unit/Ml Soln, 1-5 UNIT SUBQ ACHS, #10 ML FOR GLU 150-200 GIVE 1 UNIT FOR GLU 201-250 GIVE 2 UNITS FOR GLU 251-300 GIVE 3 UNITS FOR GLU 301-350 GIVE 4 UNITS FOR GLU OVER 350 GIVE 5 UNITS Prov:KYM SPRINGER DO 11/25/17 Reported Medications Folic Acid (FOLIC ACID) 0.4 Mg Tablet, 0.4 MG PO DAILY 09/08/17 Sodium Bicarbonate (SODIUM BICARBONATE) 650 Mg Tablet, 650 MG PO BID 09/08/17 Hydrochlorothiazide (HYDROCHLOROTHIAZIDE) 25 Mg Tablet, 1 TAB PO DAILY 09/08/17 Metoprolol Tartrate (METOPROLOL TARTRATE) 50 Mg Tab, 50 MG PO BID 09/08/17 Past Medical/Surgical History Insulin requiring diabetes. History of hypoglycemic episodes Hx Smoking: Yes Smoking Status: Current: Every Day Smoker, Heavy Tobacco Smoker Exposure to Second Hand Smoke?: Yes Hx Substance Use Disorder: No Hx Alcohol Use: Yes Constitutional Vital Sign - Last 24 Hours 01/20/18 11:53 Temp 97.1 Pulse 51 Resp 19 B/P (MAP) 144/76 Pulse Ox 98 O2 Delivery Room Air Physical Exam General/Constitutional: Patient is awake, alert, nontoxic and in no acute respiratory distress. Head: Normocephalic and atraumatic. Eyes: Conjunctival clear, Pupils are equal and reactive to light. . Ears:External canals are clear. Tympanic membranes are clear with normal landmarks and light reflex. Nares: No rhinorrhea or bleeding. Turbinates are pink and moist. Oropharyngeal: Mucous membranes are moist. \ Neck: Supple, no adenopathy. Cardiovascular: Heart is regular rate and rhythm without audible murmurs, rubs or gallops. Pulmonary: Lungs are clear to auscultation bilaterally. There are no wheezes, rales, or rhonchi. Chest rise is symmetrical Abdomen: Soft, nontender, no guarding or peritoneal signs. Extremities: No gross deformities, No peripheral cyanosis. Able to move all 4 extremities. Neuro: Alert and oriented X3, Skin: No rashes, skin is warm dry and well perfused. Medical Decision Making Data Points Result Diagram: 01/20/18 1130 01/20/18 1250 Laboratory Hematology Test 01/20/18 11:30 01/20/18 12:39 01/20/18 12:50 Red Blood Count 3.93 M/uL (4.00-5.60) Mean Corpuscular Volume 97.7 fL (80.0-96.0) Mean Corpuscular Hemoglobin 32.6 pg (26.0-33.0) Mean Corpuscular Hemoglobin Concent 33.4 g/dL (32.0-36.0) Red Cell Distribution Width 15.6 % (11.5-14.5) Mean Platelet Volume 10.5 fL (7.2-11.1) Neutrophils (%) (Auto) 58.3 % (39.4-72.5) Lymphocytes (%) (Auto) 24.5 % (17.6-49.6) Monocytes (%) (Auto) 7.6 % (4.1-12.4) Eosinophils (%) (Auto) 8.4 % (0.4-6.7) Basophils (%) (Auto) 1.2 % (0.3-1.4) Nucleated RBC Relative Count (auto) 0.1 /100WBC Neutrophils # (Auto) 7.3 K/uL (2.0-7.4) Lymphocytes # (Auto) 3.1 K/uL (1.3-3.6) Monocytes # (Auto) 1.0 K/uL (0.3-1.0) Eosinophils # (Auto) 1.1 K/uL (0.0-0.5) Basophils # (Auto) 0.2 K/uL (0.0-0.1) Nucleated RBC Absolute Count (auto) 0.01 K/uL Total Bilirubin 0.6 mg/dl (0.2-1.3) Aspartate Amino Transf (AST/SGOT) 79 U/L (0-35) Alanine Aminotransferase (ALT/SGPT) 80 U/L (0-56) Alkaline Phosphatase 197 U/L (0-126) Total Protein 7.5 gm/dl (6.3-8.2) Albumin 4.6 g/dl (3.5-5.0) Serum Alcohol < 10 mg/dl Urine Color Straw Urine Clarity Clear Urine pH 5.0 pH (4.8-9.5) Urine Specific [place] 1.012 Urine Protein Negative mg/dL (NEGATIVE) Urine Glucose (UA) 50 mg/dL (NEGATIVE) Urine Ketones Negative mg/dL (NEGATIVE) Urine Blood Negative (NEGATIVE) Urine Nitrite Negative (NEGATIVE) Urine Bilirubin Negative (NEGATIVE) Urine Urobilinogen Negative mg/dL (0.2-1.9) Urine Leukocyte Esterase Negative (NEGATIVE) Urine RBC None /HPF (0-2/HPF) Urine WBC 9 /HPF (0-5/HPF) Urine Squamous Epithelial Cells None /LPF (</=FEW) Urine Bacteria Negative /HPF (NONE-FEW) Urine Mucus None /HPF (NONE-FEW) Sodium Level 139 mmol/L (137-145) Potassium Level 4.0 mmol/L (3.5-5.0) Chloride Level 107 mmol/L (98-107) Carbon Dioxide Level 17 mmol/L (22-30) Blood Urea Nitrogen 33 mg/dl (9-21) Creatinine 2.60 mg/dl (0.66-1.25) Glomerular Filtration Rate Calc 25.2 Random Glucose 114 mg/dl (75-110) Calcium Level 8.9 mg/dl (8.4-10.2) Chemistry Test 01/20/18 11:30 01/20/18 12:39 01/20/18 12:50 White Blood Count 12.6 k/uL (4.5-11.0) Red Blood Count 3.93 M/uL (4.00-5.60) Hemoglobin 12.8 g/dL (14.0-18.0) Hematocrit 38.4 % (42.0-52.0) Mean Corpuscular Volume 97.7 fL (80.0-96.0) Mean Corpuscular Hemoglobin 32.6 pg (26.0-33.0) Mean Corpuscular Hemoglobin Concent 33.4 g/dL (32.0-36.0) Red Cell Distribution Width 15.6 % (11.5-14.5) Platelet Count 322 K/uL (150-450) Mean Platelet Volume 10.5 fL (7.2-11.1) Neutrophils (%) (Auto) 58.3 % (39.4-72.5) Lymphocytes (%) (Auto) 24.5 % (17.6-49.6) Monocytes (%) (Auto) 7.6 % (4.1-12.4) Eosinophils (%) (Auto) 8.4 % (0.4-6.7) Basophils (%) (Auto) 1.2 % (0.3-1.4) Nucleated RBC Relative Count (auto) 0.1 /100WBC Neutrophils # (Auto) 7.3 K/uL (2.0-7.4) Lymphocytes # (Auto) 3.1 K/uL (1.3-3.6) Monocytes # (Auto) 1.0 K/uL (0.3-1.0) Eosinophils # (Auto) 1.1 K/uL (0.0-0.5) Basophils # (Auto) 0.2 K/uL (0.0-0.1) Nucleated RBC Absolute Count (auto) 0.01 K/uL Total Bilirubin 0.6 mg/dl (0.2-1.3) Aspartate Amino Transf (AST/SGOT) 79 U/L (0-35) Alanine Aminotransferase (ALT/SGPT) 80 U/L (0-56) Alkaline Phosphatase 197 U/L (0-126) Total Protein 7.5 gm/dl (6.3-8.2) Albumin 4.6 g/dl (3.5-5.0) Serum Alcohol < 10 mg/dl Urine Color Straw Urine Clarity Clear Urine pH 5.0 pH (4.8-9.5) Urine Specific [place] 1.012 Urine Protein Negative mg/dL (NEGATIVE) Urine Glucose (UA) 50 mg/dL (NEGATIVE) Urine Ketones Negative mg/dL (NEGATIVE) Urine Blood Negative (NEGATIVE) Urine Nitrite Negative (NEGATIVE) Urine Bilirubin Negative (NEGATIVE) Urine Urobilinogen Negative mg/dL (0.2-1.9) Urine Leukocyte Esterase Negative (NEGATIVE) Urine RBC None /HPF (0-2/HPF) Urine WBC 9 /HPF (0-5/HPF) Urine Squamous Epithelial Cells None /LPF (</=FEW) Urine Bacteria Negative /HPF (NONE-FEW) Urine Mucus None /HPF (NONE-FEW) Glomerular Filtration Rate Calc 25.2 Calcium Level 8.9 mg/dl (8.4-10.2) Toxicology Test 01/20/18 11:30 Serum Alcohol < 10 mg/dl Urinalysis Test 01/20/18 12:39 Urine Color Straw Urine Clarity Clear Urine pH 5.0 pH (4.8-9.5) Urine Specific [place] 1.012 Urine Protein Negative mg/dL (NEGATIVE) Urine Glucose (UA) 50 mg/dL (NEGATIVE) Urine Ketones Negative mg/dL (NEGATIVE) Urine Blood Negative (NEGATIVE) Urine Nitrite Negative (NEGATIVE) Urine Bilirubin Negative (NEGATIVE) Urine Urobilinogen Negative mg/dL (0.2-1.9) Urine Leukocyte Esterase Negative (NEGATIVE) Urine RBC None /HPF (0-2/HPF) Urine WBC 9 /HPF (0-5/HPF) Urine Squamous Epithelial Cells None /LPF (</=FEW) Urine Bacteria Negative /HPF (NONE-FEW) Urine Mucus None /HPF (NONE-FEW) Microbiology Microbiology Date/Time Source Procedure Growth Status 01/20/18 14:00 Blood Peripheral Draw Received ED Course/Re-evaluation ED Course 01/20/2018 1:02:46 pm bloodwork that was initially sent to lab is from prehospital personnel. This certainly reflects why the blood sugar is 20. This is not correlated with his presentation and clinical exam as patient is now awake and alert. Our glucometer reading upon arrival was over 200. We will redraw a basic metabolic panel at this time continue to observe the patient if he his blood sugars remained stable we will discharge home. 01/20/2018 2:02:25 pm patient has remained symptom-free during his emergency department stay repeat peak blood sugars have been in the normal range. Plan will be discharge home Decision to Disposition Date: Jan 20, 2018 Decision to Disposition Time: 14:15 Depart Departure Latest Vital Signs Vital Signs Date Time Temp Pulse Resp B/P (MAP) Pulse Ox O2 Delivery O2 Flow Rate FiO2 01/20/18 11:53 97.1 51 19 144/76 98 Room Air Impression: Primary Impression: Hypoglycemia Condition: Improved Disposition: HOME OR SELF-CARE Patient Instructions: Hypoglycemia in a Person with Diabetes (ED) Additional Instructions: Follow-up with her primary care provider this week. MARCY ABREU MD Jan 20, 2018 11:53
[2018-01-20 12:21] LABS: PLATELET COUNT, AUTOMATED 322 K/uL (150-450)
[2018-01-20] MEDS ORDERED: NS(*) 0.9% 500 ML BAG 500 ML IV ONE (12:55)
== END 2018-01-20 14:25 | disposition home or self-care (01) ==
LOC: ER 12:03
DX: E11.649 Type 2 diabetes mellitus with hypoglycemia without coma (principal)
CPT/HCPCS: 36415; 36416; 80320; 81001; 82948; 85025; 87040; 96360; 99284; J7040; 82040; 82247; 82310; 82374; 82435; 82565; 82947; 84075; 84132; 84155; 84295; 84450; 84460; 84520

== ENCOUNTER → 2018-01-20 | Outpatient (CLI) | payer OTHER ==
[2017-11-24 08:26] VITALS: BMI 19.9
== END ==
LOC: AMB 11:26
PROVIDERS: ATTEND Nurse Practitioner
DX: E16.2 Hypoglycemia, unspecified (principal); R56.9 Unspecified convulsions; R41.82 Altered mental status, unspecified
CPT/HCPCS: A0425; A0427

== ENCOUNTER → 2018-03-26 | Outpatient (CLI) | payer OTHER ==
[2017-11-24 08:26] VITALS: BMI 19.9
[2018-03-26 16:37] LABS: PLATELET COUNT, AUTOMATED 261 K/uL (150-450)
== END ==
LOC: LAB 16:15
PROVIDERS: ATTEND Internal Medicine Nephrology
DX: I12.9 Hypertensive chronic kidney disease with stage 1 through stage 4 chronic kidney disease, or unspecified chronic kidney disease (principal); N18.4 Chronic kidney disease, stage 4 (severe); N25.81 Secondary hyperparathyroidism of renal origin
CPT/HCPCS: 36415; 82040; 82043; 82247; 82310; 82374; 82435; 82565; 82947; 83970; 84075; 84100; 84132; 84155; 84295; 84450; 84460; 84520; 84550; 85025

== ENCOUNTER → 2018-04-15 | Outpatient (CLI) | payer OTHER ==
[2017-11-24 08:26] VITALS: BMI 19.9
== END ==
LOC: LAB 16:13
PROVIDERS: ATTEND Internal Medicine Nephrology
DX: R80.9 Proteinuria, unspecified (principal); N18.4 Chronic kidney disease, stage 4 (severe)
CPT/HCPCS: 36415; 82310; 82374; 82435; 82565; 82947; 84132; 84295; 84520

== ENCOUNTER → 2018-06-21 | Outpatient (CLI) | payer OTHER ==
[2017-11-24 08:26] VITALS: BMI 19.9
== END ==
LOC: AMB 19:34
PROVIDERS: ATTEND Nurse Practitioner
DX: R41.82 Altered mental status, unspecified (principal); E11.649 Type 2 diabetes mellitus with hypoglycemia without coma
CPT/HCPCS: A0427

== ENCOUNTER 2018-10-28 08:04 | Emergency (ER) | payer OTHER ==
[2017-11-24 08:26] VITALS: Wt 54.4 kg
[~2018-10-28 08:04] MED LIST changes: +AMLO-113 PO; -AMLO-99 PO
[2018-10-28] MEDS ORDERED: INSU200I4 (08:22)
[2018-10-28] MEDS ORDERED: NOVOLOG SUBQ (08:22)
[2018-10-28] MEDS ORDERED: OLME20TA3 (08:22)
[2018-10-28] MEDS ORDERED: ALLO-2 (08:22)
[2018-10-28] MEDS ORDERED: CAL25 (08:22)
--- NOTE | 2018-10-28 08:35 | ER Report ---
History and Physical Time Seen By MD: 08:36 Hx. of Stated Complaint: FALL ON ICE ON SUNDAY HPI/ROS Twisted left ankle and possibly hit cement step after slipping on ice on Sunday. Has been able to ambulate with mild pain since the incident. Now with continued pain and ecchymosis to the lateral left ankle. No other injuries or complaints. Remainder of the 14 system rev: Yes Allergies: Coded Allergies: No Known Drug Allergies (Verified , 10/28/18) Home Meds Reported Medications Olmesartan Medoxomil (Olmesartan Medoxomil) 20 Mg Tablet 10/28/18 Allopurinol (Allopurinol) 300 Mg Tablet, QAM 10/28/18 Calcitriol (CALCITRIOL) 0.25 Mcg Cap, QAM 10/28/18 Insulin Degludec (Tresiba Flextouch U-200) 200 Unit/Ml (3 Ml) Insuln.pen, 8-10 QAM 10/28/18 Insulin Aspart (NOVOLOG) 100 Unit/Ml Soln, 1-5 UNIT SUBQ QAM 10/28/18 Folic Acid (FOLIC ACID) 0.4 Mg Tablet, 0.4 MG PO DAILY 09/08/17 Sodium Bicarbonate (SODIUM BICARBONATE) 650 Mg Tablet, 650 MG PO BID 09/08/17 Hydrochlorothiazide (HYDROCHLOROTHIAZIDE) 25 Mg Tablet, 1 TAB PO DAILY 09/08/17 Metoprolol Tartrate (METOPROLOL TARTRATE) 50 Mg Tab, 50 MG PO BID 09/08/17 Discontinued Scripts Insulin Aspart (NOVOLOG) 100 Unit/Ml Soln, 1-5 UNIT SUBQ ACHS, #10 ML FOR GLU 150-200 GIVE 1 UNIT FOR GLU 201-250 GIVE 2 UNITS FOR GLU 251-300 GIVE 3 UNITS FOR GLU 301-350 GIVE 4 UNITS FOR GLU OVER 350 GIVE 5 UNITS Prov:KYM SPRINGER DO 11/25/17 Hx Smoking: Yes Smoking Status: Current: Every Day Smoker, Heavy Tobacco Smoker Exposure to Second Hand Smoke?: Yes Hx Substance Use Disorder: No Hx Alcohol Use: Yes Constitutional Vital Sign - Last 24 Hours 10/28/18 08:10 Temp 98.5 Pulse 90 Resp 16 B/P (MAP) 141/66 Pulse Ox 95 O2 Delivery Room Air Physical Exam General Appearance: The patient is alert, has no immediate need for airway protection and no current signs of toxicity. Neck: Neck is supple and non tender. Extremities: Left ankle TTP at the lateral malleolus with ecchymoses and mild swelling. Skin: No rashes or lesions. DIFFERENTIAL DIAGNOSIS: After history and physical exam differential diagnosis was considered for Axert, dislocation, other traumatic injuries. Medical Decision Making ED Course/Re-evaluation ED Course Uncomplicated fracture of the left lateral malleolus. No evidence of other fractures or injuries. We'll place in a walking boot and have the patient follow-up with an orthopedic provider this week. Decision to Disposition Date: Oct 28, 2018 Decision to Disposition Time: 10:01 Depart Departure Latest Vital Signs Vital Signs Date Time Temp Pulse Resp B/P (MAP) Pulse Ox O2 Delivery O2 Flow Rate FiO2 10/28/18 08:10 98.5 90 16 141/66 95 Room Air Impression: Primary Impression: Fracture of fibula alone Condition: Improved Disposition: HOME OR SELF-CARE Patient Instructions: Ankle Fracture (ED) GERHARD FAJARDO MD Oct 28, 2018 08:35
--- NOTE | 2018-10-28 09:18 | RADIOLOGY IMAGING REPORT ---
FACILITY: [facility] - [place] PATIENT NAME: Miguel Dhillon : 1955 MR: [id number] V: [id number] EXAM DATE: ORDERING PHYSICIAN: GERHARD FAJARDO TECHNOLOGIST: Location: [facility] Patient: Miguel Dhillon : 1955 Visit/Account:[id number] Date of Sevice: 10/28/2018 ANKLE 3 VIEW MIN LEFT COMPARISONS: None. ADDITIONAL PERTINENT HISTORY: Recent fall on ice. FINDINGS: Osseous structures: Mild diffuse osteopenia. Faint irregular lucency through the midportion of the la teral malleolus concerning for a nondisplaced fracture. Joint spaces: Negative. Surrounding soft tissues: Lateral malleolar soft tissue swelling. IMPRESSION: 1. Mild diffuse osteopenia. 2. Nondisplaced fracture through the midportion of the lateral malleolus. 3. Left lateral malleolar soft tissue swelling. Report Dictated By: Willian Camarillo MD at 10/28/2018 9:13 AM Report E-Signed By: Willian Camarillo MD at 10/28/2018 9:15 AM [id number]
[2018-10-28 10:25] VITALS: BP 130/72
== END 2018-10-28 10:28 | disposition home or self-care (01) ==
LOC: ER 08:38
DX: S82.65XA Nondisplaced fracture of lateral malleolus of left fibula, initial encounter for closed fracture (principal); W00.0XXA Fall on same level due to ice and snow, initial encounter
CPT/HCPCS: 99283

== ENCOUNTER → 2018-11-25 | Outpatient (CLI) | payer OTHER ==
[2017-11-24 08:26] VITALS: BMI 19.9
[~2018-11-25] MED LIST changes: +ALLO-2; +CAL25; +INSU200I4
[2018-11-25 15:43] LABS: PLATELET COUNT, AUTOMATED 312 K/uL (150-450)
== END ==
LOC: LAB 15:13
PROVIDERS: ATTEND Internal Medicine Nephrology
DX: N28.9 Disorder of kidney and ureter, unspecified (principal); N18.4 Chronic kidney disease, stage 4 (severe)
CPT/HCPCS: 36415; 82040; 82043; 82310; 82374; 82435; 82565; 82570; 82947; 83970; 84100; 84132; 84295; 84520; 84550; 85025

== ENCOUNTER → 2018-12-09 | Outpatient (CLI) | payer OTHER ==
[2017-11-24 08:26] VITALS: BMI 19.9
[~2018-12-09] MED LIST changes: -AMLO-113 PO; +AMLO-127 PO
== END ==
LOC: LAB 16:35
PROVIDERS: ATTEND Internal Medicine Nephrology
DX: E87.5 Hyperkalemia (principal); N18.4 Chronic kidney disease, stage 4 (severe)
CPT/HCPCS: 36415; 82310; 82374; 82435; 82565; 82947; 84132; 84295; 84520

== ENCOUNTER 2018-12-31 13:07 | Emergency (ER) | payer OTHER ==
[2017-11-24 08:26] VITALS: Wt 61.2 kg
[2018-12-31 13:23] LABS: PLATELET COUNT, AUTOMATED 295 K/uL (150-450)
--- NOTE | 2018-12-31 13:41 | EKG ---
FACILITY: [facility] - [place] PATIENT NAME: ROSI DAY : [id number] MR: [id number] V: [id number] EXAM DATE: ORDERING PHYSICIAN: MARCY ABREU TECHNOLOGIST: Test Reason : AMS Blood Pressure : / mmHG Vent. Rate : 072 BPM Atrial Rate : 072 BPM P-R Int : 172 ms QRS Dur : 110 ms QT Int : 428 ms P-R-T Axes : 044 033 065 degrees QTc Int : 468 ms Sinus rhythm with premature supraventricular complexes Otherwise normal ECG Confirmed by KYM SPRINGER ([id number]) on 01/01/2019 6:07:26 AM Referred By: Confirmed By:KYM SPRINGER
--- NOTE | 2018-12-31 14:33 | ER Report ---
History and Physical Time Seen By MD: 13:15 Hx. of Stated Complaint: AMS FOLLOWING HYPOGLYCEMIA (MARCY ABREU MD) HPI/ROS CHIEF COMPLAINT: Low blood sugar HISTORY OF PRESENT ILLNESS: Patient is a 63-year-old male with past medical history significant for hypertension, history of type II diabetes and chronic kidney disease stage IV due to diabetic nephropathy. Patient is brought to the emergency department by EMS for episode of hypoglycemia. Patient took his insulin this morning but did not eat a meal. He became agitated and combative. Mother called 911. Prehospital personnel arrived and found a blood sugar that was less than 20. At the time EMS arrived patient was having a tonic-clonic seizure. He was administered one half amp of D50. He had a slow return to baseline mental status and was experiencing postictal symptoms. Upon arrival to the emergency department currently he feels well and has no complaints or particular concerns. States there is been no change in his recent insulin dosing. He states that he felt well last evening. He denies any fevers or chills. REVIEW OF SYSTEMS: Constitutional: No fever, no chills. Eyes: No discharge. ENT: No sore throat. Cardiovascular: No chest pain, no palpitations. Respiratory: No cough, no shortness of breath. Gastrointestinal: No abdominal pain, no vomiting. Genitourinary: No hematuria. Musculoskeletal: No back pain. Skin: No rashes. Neurological: No headache. (MARCY ABREU MD) Allergies: Coded Allergies: No Known Drug Allergies (Verified , 10/28/18) Home Meds Reported Medications Olmesartan Medoxomil (Olmesartan Medoxomil) 20 Mg Tablet 10/28/18 Allopurinol (Allopurinol) 300 Mg Tablet, QAM 10/28/18 Calcitriol (CALCITRIOL) 0.25 Mcg Cap, QAM 10/28/18 Insulin Degludec (Tresiba Flextouch U-200) 200 Unit/Ml (3 Ml) Insuln.pen, 8-10 QAM 10/28/18 Insulin Aspart (NOVOLOG) 100 Unit/Ml Soln, 1-5 UNIT SUBQ QAM 10/28/18 Folic Acid (FOLIC ACID) 0.4 Mg Tablet, 0.4 MG PO DAILY 09/08/17 Sodium Bicarbonate (SODIUM BICARBONATE) 650 Mg Tablet, 650 MG PO BID 09/08/17 Hydrochlorothiazide (HYDROCHLOROTHIAZIDE) 25 Mg Tablet, 1 TAB PO DAILY 09/08/17 Metoprolol Tartrate (METOPROLOL TARTRATE) 50 Mg Tab, 50 MG PO BID 09/08/17 Past Medical/Surgical History Insulin requiring diabetes. History of hypoglycemic episodes, history of chronic kidney disease, gout (MARCY ABREU MD) Hx Smoking: Yes Smoking Status: Current: Every Day Smoker, Heavy Tobacco Smoker Exposure to Second Hand Smoke?: Yes Hx Substance Use Disorder: No Hx Alcohol Use: Yes (MARCY ABREU MD) Constitutional Vital Sign - Last 24 Hours 12/31/18 13:12 Temp 97.5 Pulse 74 Resp 20 B/P (MAP) 137/72 Pulse Ox 94 O2 Delivery Room Air ([facility]) Physical Exam General Appearance: The patient is alert, has no immediate need for airway protection and no signs of toxicity. Thin framed male Eyes: Pupils equal and round no pallor or injection. No scleral jaundice ENT, Mouth: Mucous membranes are moist. Respiratory: There are no retractions, lungs are clear to auscultation. Cardiovascular: Regular rate and rhythm. Gastrointestinal: Abdomen is soft and non tender, no masses, bowel sounds normal. Neurological: GCS is 15 patient is awake and alert Skin: Warm and dry, no rashes. Musculoskeletal: Neck is supple non tender. Extremities are nontender, nonswollen and have full range of motion. (MARCY ABREU MD) Medical Decision Making Data Points Result Diagram: 12/31/18 1302 12/31/18 1532 Laboratory Hematology Test 12/31/18 13:02 12/31/18 15:30 12/31/18 15:32 Red Blood Count 3.50 M/uL (4.00-5.60) Mean Corpuscular Volume 103.2 fL (80.0-96.0) Mean Corpuscular Hemoglobin 33.0 pg (26.0-33.0) Mean Corpuscular Hemoglobin Concent 31.9 g/dL (32.0-36.0) Red Cell Distribution Width 14.7 % (11.5-14.5) Mean Platelet Volume 9.5 fL (7.2-11.1) Neutrophils (%) (Auto) 48.9 % (39.4-72.5) Lymphocytes (%) (Auto) 37.0 % (17.6-49.6) Monocytes (%) (Auto) 7.1 % (4.1-12.4) Eosinophils (%) (Auto) 5.8 % (0.4-6.7) Basophils (%) (Auto) 1.2 % (0.3-1.4) Nucleated RBC Relative Count (auto) 0.1 /100WBC Neutrophils # (Auto) 5.6 K/uL (2.0-7.4) Lymphocytes # (Auto) 4.2 K/uL (1.3-3.6) Monocytes # (Auto) 0.8 K/uL (0.3-1.0) Eosinophils # (Auto) 0.7 K/uL (0.0-0.5) Basophils # (Auto) 0.1 K/uL (0.0-0.1) Nucleated RBC Absolute Count (auto) 0.01 K/uL Total Bilirubin 0.4 mg/dl (0.2-1.3) Aspartate Amino Transf (AST/SGOT) 82 U/L (0-35) Alanine Aminotransferase (ALT/SGPT) 38 U/L (0-56) Alkaline Phosphatase 99 U/L (0-126) Total Protein 7.3 g/dl (6.3-8.2) Albumin 4.6 g/dl (3.5-5.0) Lipase 26 U/L (23-300) Urine Color Straw Urine Clarity Clear Urine pH 6.0 pH (4.8-9.5) Urine Specific [place] 1.011 Urine Protein 30 mg/dL (NEGATIVE) Urine Glucose (UA) Negative mg/dL (NEGATIVE) Urine Ketones Negative mg/dL (NEGATIVE) Urine Blood Small (NEGATIVE) Urine Nitrite Negative (NEGATIVE) Urine Bilirubin Negative (NEGATIVE) Urine Urobilinogen Negative mg/dL (0.2-1.9) Urine Leukocyte Esterase Negative (NEGATIVE) Urine RBC <1 /HPF (0-2/HPF) Urine WBC 3 /HPF (0-5/HPF) Urine Squamous Epithelial Cells Moderate /LPF (</=FEW) Urine Bacteria Negative /HPF (NONE-FEW) Urine Mucus None /HPF (NONE-FEW) Sodium Level 140 mmol/L (137-145) Potassium Level 5.1 mmol/L (3.5-5.0) Chloride Level 116 mmol/L (98-107) Carbon Dioxide Level 19 mmol/L (22-30) Blood Urea Nitrogen 33 mg/dl (9-21) Creatinine 2.60 mg/dl (0.66-1.25) Glomerular Filtration Rate Calc 25.1 Random Glucose 126 mg/dl (75-110) Calcium Level 8.3 mg/dl (8.4-10.2) Chemistry Test 12/31/18 13:02 12/31/18 15:30 12/31/18 15:32 White Blood Count 11.4 k/uL (4.5-11.0) Red Blood Count 3.50 M/uL (4.00-5.60) Hemoglobin 11.5 g/dL (14.0-18.0) Hematocrit 36.1 % (42.0-52.0) Mean Corpuscular Volume 103.2 fL (80.0-96.0) Mean Corpuscular Hemoglobin 33.0 pg (26.0-33.0) Mean Corpuscular Hemoglobin Concent 31.9 g/dL (32.0-36.0) Red Cell Distribution Width 14.7 % (11.5-14.5) Platelet Count 295 K/uL (150-450) Mean Platelet Volume 9.5 fL (7.2-11.1) Neutrophils (%) (Auto) 48.9 % (39.4-72.5) Lymphocytes (%) (Auto) 37.0 % (17.6-49.6) Monocytes (%) (Auto) 7.1 % (4.1-12.4) Eosinophils (%) (Auto) 5.8 % (0.4-6.7) Basophils (%) (Auto) 1.2 % (0.3-1.4) Nucleated RBC Relative Count (auto) 0.1 /100WBC Neutrophils # (Auto) 5.6 K/uL (2.0-7.4) Lymphocytes # (Auto) 4.2 K/uL (1.3-3.6) Monocytes # (Auto) 0.8 K/uL (0.3-1.0) Eosinophils # (Auto) 0.7 K/uL (0.0-0.5) Basophils # (Auto) 0.1 K/uL (0.0-0.1) Nucleated RBC Absolute Count (auto) 0.01 K/uL Total Bilirubin 0.4 mg/dl (0.2-1.3) Aspartate Amino Transf (AST/SGOT) 82 U/L (0-35) Alanine Aminotransferase (ALT/SGPT) 38 U/L (0-56) Alkaline Phosphatase 99 U/L (0-126) Total Protein 7.3 g/dl (6.3-8.2) Albumin 4.6 g/dl (3.5-5.0) Lipase 26 U/L (23-300) Urine Color Straw Urine Clarity Clear Urine pH 6.0 pH (4.8-9.5) Urine Specific [place] 1.011 Urine Protein 30 mg/dL (NEGATIVE) Urine Glucose (UA) Negative mg/dL (NEGATIVE) Urine Ketones Negative mg/dL (NEGATIVE) Urine Blood Small (NEGATIVE) Urine Nitrite Negative (NEGATIVE) Urine Bilirubin Negative (NEGATIVE) Urine Urobilinogen Negative mg/dL (0.2-1.9) Urine Leukocyte Esterase Negative (NEGATIVE) Urine RBC <1 /HPF (0-2/HPF) Urine WBC 3 /HPF (0-5/HPF) Urine Squamous Epithelial Cells Moderate /LPF (</=FEW) Urine Bacteria Negative /HPF (NONE-FEW) Urine Mucus None /HPF (NONE-FEW) Glomerular Filtration Rate Calc 25.1 Calcium Level 8.3 mg/dl (8.4-10.2) Urinalysis Test 12/31/18 15:30 Urine Color Straw Urine Clarity Clear Urine pH 6.0 pH (4.8-9.5) Urine Specific [place] 1.011 Urine Protein 30 mg/dL (NEGATIVE) Urine Glucose (UA) Negative mg/dL (NEGATIVE) Urine Ketones Negative mg/dL (NEGATIVE) Urine Blood Small (NEGATIVE) Urine Nitrite Negative (NEGATIVE) Urine Bilirubin Negative (NEGATIVE) Urine Urobilinogen Negative mg/dL (0.2-1.9) Urine Leukocyte Esterase Negative (NEGATIVE) Urine RBC <1 /HPF (0-2/HPF) Urine WBC 3 /HPF (0-5/HPF) Urine Squamous Epithelial Cells Moderate /LPF (</=FEW) Urine Bacteria Negative /HPF (NONE-FEW) Urine Mucus None /HPF (NONE-FEW) (DEBORAH DURAN DO) ED Course/Re-evaluation Clinical Indication for ER IV: Hydration, IV Access ED Course 12/31/2018 2:48:00 pm patient with likely hypoglycemic seizure found prehospital with a blood sugar of 20. Was given dextrose however patient remained postictal for approximately 2030 minutes however upon arrival to the emergency department the patient was at baseline mental status. We have monitored the patient's blood sugars and he has had drop into the mid 40s without any symptomatic changes we are continuing to feed him and give him juice. Plan will be CT scan will also obtain blood work and follow blood sugars closely. (MARCY ABREU MD) ED Course 12/31/2018 4:11:51 pm Pt feeling much better after the fliuds. Pts bmp is improved. Pt going home with his mom. Pt understand he needs to have snacks between his three meals a day. Decision to Disposition Date: Dec 31, 2018 Decision to Disposition Time: 16:12 (DEBORAH DURAN DO) Depart Departure Latest Vital Signs Vital Signs Date Time Temp Pulse Resp B/P (MAP) Pulse Ox O2 Delivery O2 Flow Rate FiO2 12/31/18 13:12 97.5 74 20 137/72 94 Room Air (DEBORAH DURAN DO) Impression: Primary Impression: Hypoglycemia Condition: Improved Disposition: HOME OR SELF-CARE Referrals: CONSUELO MOORE DO (PCP) Patient Instructions: Hypoglycemia in a Person with Diabetes (ED) Additional Instructions: It is important that you eat snacks between your three meals a day. Check your blood sugar regularly and especially when you feel funny. Follow up with your doctor. Return as needed MARCY ABREU MD Dec 31, 2018 14:33 DEBORAH DURAN DO Dec 31, 2018 16:14
[2018-12-31] MEDS ORDERED: NS(*) 0.9% 1000 ML BAG 1,000 ML IV ONE (14:55)
--- NOTE | 2018-12-31 15:23 | RADIOLOGY IMAGING REPORT ---
FACILITY: [facility] - [place] PATIENT NAME: Miguel Dhillon : 1955 MR: [id number] V: [id number] EXAM DATE: ORDERING PHYSICIAN: MARCY ABREU TECHNOLOGIST: Location: [facility] Patient: Miguel Dhillon : 1955 Visit/Account:[id number] Date of Sevice: 12/31/2018 CT OF THE BRAIN WITHOUT CONTRAST HISTORY: Seizure. PROCEDURE: 3.0 mm contiguous axial sections were performed through the brain. Sagittal and coronal r eformats were submitted. COMPARISON: CT brain November 24, 2017 FINDINGS: BRAIN: Brain and intracranial structures: There is no mass lesion, hemorrhage or acute infarct. Orbits (included portions): Normal. Scalp: Normal. Skull: Normal. Paranasal sinuses and mastoid air cells (included portions): Normal. IMPRESSION: No evidence of acute intracranial abnormality. One of the following dose optimization techniques was utilized in the performance of this exam: Autom ated exposure control; adjustment of the mA and/or kV according to the patient's size; or use of an i terative reconstruction technique. Specific details can be referenced in the facility's radiology C T exam operational policy. Report Dictated By: Milad Robbins MD at 12/31/2018 3:12 PM Report E-Signed By: Milad Robbins MD at 12/31/2018 3:20 PM [id number]
[2018-12-31 16:00] VITALS: BP 141/71
== END 2018-12-31 16:32 | disposition home or self-care (01) ==
LOC: ER 13:16
DX: E11.649 Type 2 diabetes mellitus with hypoglycemia without coma (principal); I49.3 Ventricular premature depolarization
CPT/HCPCS: 36415; 36416; 70450; 81001; 82948; 83690; 85025; 93005; 96360; 99284; J7030; 82040; 82247; 82310; 82374; 82435; 82565; 82947; 84075; 84132; 84155; 84295; 84450; 84460; 84520

== ENCOUNTER → 2018-12-31 | Outpatient (CLI) | payer OTHER ==
[2017-11-24 08:26] VITALS: BMI 19.9
== END ==
LOC: AMB 12:43
PROVIDERS: ATTEND Nurse Practitioner
DX: E11.649 Type 2 diabetes mellitus with hypoglycemia without coma (principal); R56.9 Unspecified convulsions; R06.5 Mouth breathing; R45.1 Restlessness and agitation; R09.02 Hypoxemia; R40.0 Somnolence
CPT/HCPCS: A0425; A0427

== ENCOUNTER 2019-02-20 15:05 | Emergency (ER) | payer OTHER ==
[2017-11-24 08:26] VITALS: Wt 61.5 kg
--- NOTE | 2019-02-20 15:07 | ER Report ---
History and Physical Time Seen By MD: 15:07 HPI/ROS CHIEF COMPLAINT: Weakness, hypoglycemia HISTORY OF PRESENT ILLNESS: Patient is a 63-year-old male here with complaints of hypoglycemia, found unresponsive on the side of [address] after reportedly taking insulin and forgetting to have his lunch. Patient was given half an amp of D50 initially which improved his glucose levels from 22 to 140s per EMS report. Patient is alert and oriented at this time, hemodynamically stable, unclear about the events leading up to his arrival in the emergency department. 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 Patient denies recent illnesses, cough, cold symptoms, fevers or chills, difficulty urinating. REVIEW OF SYSTEMS: Constitutional: No fever, no chills. Eyes: No discharge. ENT: No sore throat. Cardiovascular: No chest pain, no palpitations. Respiratory: No cough, no shortness of breath. Gastrointestinal: No abdominal pain, no vomiting. Genitourinary: No hematuria. Musculoskeletal: No back pain. Skin: No rashes. Neurological: + AMS secondary to hypoglycemia Allergies: Coded Allergies: No Known Drug Allergies (Verified , 10/28/18) Home Meds Reported Medications Olmesartan Medoxomil (Olmesartan Medoxomil) 20 Mg Tablet 10/28/18 Allopurinol (Allopurinol) 300 Mg Tablet, QAM 10/28/18 Calcitriol (CALCITRIOL) 0.25 Mcg Cap, QAM 10/28/18 Insulin Degludec (Tresiba Flextouch U-200) 200 Unit/Ml (3 Ml) Insuln.pen, 8-10 QAM 10/28/18 Insulin Aspart (NOVOLOG) 100 Unit/Ml Soln, 1-5 UNIT SUBQ QAM 10/28/18 Folic Acid (FOLIC ACID) 0.4 Mg Tablet, 0.4 MG PO DAILY 09/08/17 Sodium Bicarbonate (SODIUM BICARBONATE) 650 Mg Tablet, 650 MG PO BID 09/08/17 Hydrochlorothiazide (HYDROCHLOROTHIAZIDE) 25 Mg Tablet, 1 TAB PO DAILY 09/08/17 Metoprolol Tartrate (METOPROLOL TARTRATE) 50 Mg Tab, 50 MG PO BID 09/08/17 Hx Smoking: Yes Smoking Status: Current: Every Day Smoker, Heavy Tobacco Smoker Exposure to Second Hand Smoke?: Yes Hx Substance Use Disorder: No Hx Alcohol Use: Yes Constitutional Vital Sign - Last 24 Hours 02/20/19 02/20/19 02/20/19 02/20/19 15:05 15:09 15:09 15:20 Temp 96.9 Pulse ??? 60 59 Resp 18 B/P (MAP) 127/68 127/68 (87) Pulse Ox 90 93 O2 Delivery Room Air 02/20/19 02/20/19 02/20/19 02/20/19 15:30 15:35 15:49 15:50 Pulse ??? 57 B/P (MAP) ???/??? (1665) Pulse Ox 98 O2 Flow Rate 2.0 02/20/19 02/20/19 02/20/19 02/20/19 16:00 16:05 16:20 16:30 Pulse 63 59 B/P (MAP) 127/74 (91) 140/115 (123) Pulse Ox 98 97 02/20/19 16:35 Pulse 57 Pulse Ox 98 Physical Exam General Appearance: The patient is alert, has no immediate need for airway protection and no signs of toxicity. AAO, NAD Eyes: Pupils equal and round no pallor or injection. ENT, Mouth: Mucous membranes are moist. Respiratory: There are no retractions, lungs are clear to auscultation. Cardiovascular: Regular rate and rhythm. Gastrointestinal: Abdomen is soft and non tender, no masses, bowel sounds normal. Neurological: AAO, moving all extremities Skin: Warm and dry, no rashes. Musculoskeletal: Neck is supple non tender. Extremities are nontender, nonswollen and have full range of motion. DIFFERENTIAL DIAGNOSIS: After history and physical exam differential diagnosis was considered for altered mental status including but not limited to hypogly cemia, infectious process, electrolyte abnormality, head injury and intoxicants. Medical Decision Making Data Points Result Diagram: 02/20/19 1526 02/20/19 1526 Laboratory Hematology Test 02/20/19 15:26 02/20/19 15:39 Red Blood Count 3.32 M/uL (4.00-5.60) Mean Corpuscular Volume 99.1 fL (80.0-96.0) Mean Corpuscular Hemoglobin 32.1 pg (26.0-33.0) Mean Corpuscular Hemoglobin Concent 32.4 g/dL (32.0-36.0) Red Cell Distribution Width 14.8 % (11.5-14.5) Mean Platelet Volume 9.4 fL (7.2-11.1) Neutrophils (%) (Auto) 87.2 % (39.4-72.5) Lymphocytes (%) (Auto) 5.2 % (17.6-49.6) Monocytes (%) (Auto) 6.1 % (4.1-12.4) Eosinophils (%) (Auto) 1.2 % (0.4-6.7) Basophils (%) (Auto) 0.3 % (0.3-1.4) Nucleated RBC Relative Count (auto) 0.0 /100WBC Neutrophils # (Auto) 12.0 K/uL (2.0-7.4) Lymphocytes # (Auto) 0.7 K/uL (1.3-3.6) Monocytes # (Auto) 0.8 K/uL (0.3-1.0) Eosinophils # (Auto) 0.2 K/uL (0.0-0.5) Basophils # (Auto) 0.0 K/uL (0.0-0.1) Nucleated RBC Absolute Count (auto) 0.00 K/uL Blood Gas Patient Temperature 96.9 DEGREES Venous Blood pH 7.28 (7.31-7.41) Venous Blood Partial Pressure CO2 33 mmHg Venous Blood Partial Pressure O2 37 mmHg Venous Blood HCO3 16 mmol/L Venous Blood Oxygen Saturation 68 % Venous Blood Base Excess -11 mmol/L Oxygen Liters/Minute Room air Sodium Level 141 mmol/L (137-145) Potassium Level 4.0 mmol/L (3.5-5.0) Chloride Level 114 mmol/L (98-107) Carbon Dioxide Level 17 mmol/L (22-30) Blood Urea Nitrogen 31 mg/dl (9-21) Creatinine 2.80 mg/dl (0.66-1.25) Glomerular Filtration Rate Calc 23.1 Random Glucose 87 mg/dl (75-110) Calcium Level 8.9 mg/dl (8.4-10.2) Total Bilirubin 0.5 mg/dl (0.2-1.3) Aspartate Amino Transf (AST/SGOT) 59 U/L (0-35) Alanine Aminotransferase (ALT/SGPT) 50 U/L (0-56) Alkaline Phosphatase 135 U/L (0-126) Troponin I < 0.012 ng/ml Total Protein 6.3 g/dl (6.3-8.2) Albumin 4.3 g/dl (3.5-5.0) Urine Color Yellow Urine Clarity Clear Urine pH 5.0 pH (4.8-9.5) Urine Specific [place] 1.012 Urine Protein Negative mg/dL (NEGATIVE) Urine Glucose (UA) Negative mg/dL (NEGATIVE) Urine Ketones Negative mg/dL (NEGATIVE) Urine Blood Negative (NEGATIVE) Urine Nitrite Negative (NEGATIVE) Urine Bilirubin Negative (NEGATIVE) Urine Urobilinogen Negative mg/dL (0.2-1.9) Urine Leukocyte Esterase Trace (NEGATIVE) Urine RBC <1 /HPF (0-2/HPF) Urine WBC 24 /HPF (0-5/HPF) Urine Squamous Epithelial Cells Moderate /LPF (</=FEW) Urine Bacteria Negative /HPF (NONE-FEW) Urine Mucus None /HPF (NONE-FEW) Chemistry Test 02/20/19 15:26 02/20/19 15:39 White Blood Count 13.8 k/uL (4.5-11.0) Red Blood Count 3.32 M/uL (4.00-5.60) Hemoglobin 10.6 g/dL (14.0-18.0) Hematocrit 32.9 % (42.0-52.0) Mean Corpuscular Volume 99.1 fL (80.0-96.0) Mean Corpuscular Hemoglobin 32.1 pg (26.0-33.0) Mean Corpuscular Hemoglobin Concent 32.4 g/dL (32.0-36.0) Red Cell Distribution Width 14.8 % (11.5-14.5) Platelet Count 275 K/uL (150-450) Mean Platelet Volume 9.4 fL (7.2-11.1) Neutrophils (%) (Auto) 87.2 % (39.4-72.5) Lymphocytes (%) (Auto) 5.2 % (17.6-49.6) Monocytes (%) (Auto) 6.1 % (4.1-12.4) Eosinophils (%) (Auto) 1.2 % (0.4-6.7) Basophils (%) (Auto) 0.3 % (0.3-1.4) Nucleated RBC Relative Count (auto) 0.0 /100WBC Neutrophils # (Auto) 12.0 K/uL (2.0-7.4) Lymphocytes # (Auto) 0.7 K/uL (1.3-3.6) Monocytes # (Auto) 0.8 K/uL (0.3-1.0) Eosinophils # (Auto) 0.2 K/uL (0.0-0.5) Basophils # (Auto) 0.0 K/uL (0.0-0.1) Nucleated RBC Absolute Count (auto) 0.00 K/uL Blood Gas Patient Temperature 96.9 DEGREES Venous Blood pH 7.28 (7.31-7.41) Venous Blood Partial Pressure CO2 33 mmHg Venous Blood Partial Pressure O2 37 mmHg Venous Blood HCO3 16 mmol/L Venous Blood Oxygen Saturation 68 % Venous Blood Base Excess -11 mmol/L Oxygen Liters/Minute Room air Glomerular Filtration Rate Calc 23.1 Calcium Level 8.9 mg/dl (8.4-10.2) Total Bilirubin 0.5 mg/dl (0.2-1.3) Aspartate Amino Transf (AST/SGOT) 59 U/L (0-35) Alanine Aminotransferase (ALT/SGPT) 50 U/L (0-56) Alkaline Phosphatase 135 U/L (0-126) Troponin I < 0.012 ng/ml Total Protein 6.3 g/dl (6.3-8.2) Albumin 4.3 g/dl (3.5-5.0) Urine Color Yellow Urine Clarity Clear Urine pH 5.0 pH (4.8-9.5) Urine Specific [place] 1.012 Urine Protein Negative mg/dL (NEGATIVE) Urine Glucose (UA) Negative mg/dL (NEGATIVE) Urine Ketones Negative mg/dL (NEGATIVE) Urine Blood Negative (NEGATIVE) Urine Nitrite Negative (NEGATIVE) Urine Bilirubin Negative (NEGATIVE) Urine Urobilinogen Negative mg/dL (0.2-1.9) Urine Leukocyte Esterase Trace (NEGATIVE) Urine RBC <1 /HPF (0-2/HPF) Urine WBC 24 /HPF (0-5/HPF) Urine Squamous Epithelial Cells Moderate /LPF (</=FEW) Urine Bacteria Negative /HPF (NONE-FEW) Urine Mucus None /HPF (NONE-FEW) Urinalysis Test 02/20/19 15:39 Urine Color Yellow Urine Clarity Clear Urine pH 5.0 pH (4.8-9.5) Urine Specific [place] 1.012 Urine Protein Negative mg/dL (NEGATIVE) Urine Glucose (UA) Negative mg/dL (NEGATIVE) Urine Ketones Negative mg/dL (NEGATIVE) Urine Blood Negative (NEGATIVE) Urine Nitrite Negative (NEGATIVE) Urine Bilirubin Negative (NEGATIVE) Urine Urobilinogen Negative mg/dL (0.2-1.9) Urine Leukocyte Esterase Trace (NEGATIVE) Urine RBC <1 /HPF (0-2/HPF) Urine WBC 24 /HPF (0-5/HPF) Urine Squamous Epithelial Cells Moderate /LPF (</=FEW) Urine Bacteria Negative /HPF (NONE-FEW) Urine Mucus None /HPF (NONE-FEW) EKG/Imaging Imaging PATIENT NAME: Miguel Dhillon : 1955 MR: [id number] V: [id number] EXAM DATE: [id number] ORDERING PHYSICIAN: MARGARITO CHADWICK TECHNOLOGIST: [place] [facility] [place] Miguel Dhillon : 1955 Visit/Account:[id number] Date of Sevice: 02/20/2019 CHEST PA LAT COMPARISONS: 2 view chest dated February 19, 2017 ADDITIONAL PERTINENT HISTORY: Cough with hypoglycemia FINDINGS: Cardiomediastinal silhouette: Mild cardiomegaly, stable from previous exam. Pulmonary vasculature: Atherosclerotic disease of the thoracic aorta. Lung marie: Minimal bibasilar regions of scarring. Otherwise negative Pleural spaces: Negative. Osseous structures: Moderate loss of height involving multiple levels within the mid thoracic spine, stable from previous exam. Findings of interval development of remote appearing nondisplaced posterior lateral right fifth and sixth rib fractures. Surrounding soft tissues: Negative. IMPRESSION: 1. Persistent mild cardiomegaly. 2. Minimal bibasilar regions of scarring. 3. No acute cardiopulmonary disease. ED Course/Re-evaluation ED Course Patient is a 63-year-old male with a history of fragile diabetes found on the side of the road slumped over his steering wheel. Patient reportedly has been seen multiple times for similar situations. Patient reportedly took his insulin at 10:00 and only had a snack at approximately 8:00 this morning. Patient forgot to have lunch after taking his insulin likely precipitating this incident. Patient was alert and oriented after receiving half an amp of D50. Patient's mother arrived at bedside after calling police in order to locate her son. Chest x-ray showed no acute findings. Labs were unremarkable and patient was given a meal in order to increase his glucose with complex carbohydrates. Patient was stable at time of discharge, return precautions provided. Decision to Disposition Date: Feb 20, 2019 Decision to Disposition Time: 16:29 Depart Departure Latest Vital Signs Vital Signs Date Time Temp Pulse Resp B/P (MAP) Pulse Ox O2 Delivery O2 Flow Rate FiO2 02/20/19 16:35 57 98 02/20/19 16:30 140/115 (123) 02/20/19 15:49 2.0 02/20/19 15:09 96.9 18 Room Air Impression: Primary Impression: Hypoglycemia Condition: Improved Disposition: HOME OR SELF-CARE Referrals: CONSUELO MOORE DO (PCP) Patient Instructions: Hypoglycemia in a Person with Diabetes (ED) Additional Instructions: Please drink plenty of water. Please be sure to eat a regular meal after taking your insulin dosing. Please follow-up with your family doctor in the next 24-48 hours for reevaluation. Please return promptly if you develop fevers, chills, chest pain, shortness of breath, nausea, vomiting. MARGARITO CHADWICK DO Feb 20, 2019 15:07
[2019-02-20] MEDS ORDERED: NS(*) 0.9% 1000 ML BAG 1,000 ML IV ONE (15:18)
[2019-02-20 15:35] LABS: PLATELET COUNT, AUTOMATED 275 K/uL (150-450)
--- NOTE | 2019-02-20 15:47 | RADIOLOGY IMAGING REPORT ---
FACILITY: [facility] PATIENT NAME: Miguel Dhillon : 1955 MR: [id number] V: [id number] EXAM DATE: ORDERING PHYSICIAN: MARGARITO CHADWICK TECHNOLOGIST: Location: [facility] Patient: Miguel Dhillon : 1955 Visit/Account:[id number] Date of Sevice: 02/20/2019 CHEST PA LAT COMPARISONS: 2 view chest dated February 19, 2017 ADDITIONAL PERTINENT HISTORY: Cough with hypoglycemia FINDINGS: Cardiomediastinal silhouette: Mild cardiomegaly, stable from previous exam. Pulmonary vasculature: Atherosclerotic disease of the thoracic aorta. Lung marie: Minimal bibasilar regions of scarring. Otherwise negative Pleural spaces: Negative. Osseous structures: Moderate loss of height involving multiple levels within the mid thoracic spine, stable from previous exam. Findings of interval development of remote appearing nondisplaced [employer] ior lateral right fifth and sixth rib fractures. Surrounding soft tissues: Negative. IMPRESSION: 1. Persistent mild cardiomegaly. 2. Minimal bibasilar regions of scarring. 3. No acute cardiopulmonary disease. Report Dictated By: Willian Camarillo MD at 02/20/2019 3:41 PM Report E-Signed By: Willian Camarillo MD at 02/20/2019 3:43 PM WSN:[id number]
[2019-02-20 16:30] VITALS: BP 140/115
== END 2019-02-20 16:34 | disposition home or self-care (01) ==
LOC: ER 15:14
DX: E11.649 Type 2 diabetes mellitus with hypoglycemia without coma (principal)
CPT/HCPCS: 71046; 81001; 82803; 84484; 85025; 96360; 99283; J7030; 82040; 82247; 82310; 82374; 82435; 82565; 82947; 84075; 84132; 84155; 84295; 84450; 84460; 84520

== ENCOUNTER → 2019-02-20 | Outpatient (CLI) | payer OTHER ==
[2017-11-24 08:26] VITALS: BMI 19.9
== END ==
LOC: AMB 14:49
PROVIDERS: ATTEND Nurse Practitioner
DX: R41.82 Altered mental status, unspecified (principal); E16.2 Hypoglycemia, unspecified
CPT/HCPCS: A0425; A0427

== ENCOUNTER → 2019-03-20 | Outpatient (CLI) | payer OTHER ==
[2017-11-24 08:26] VITALS: BMI 19.9
== END ==
LOC: AMB 12:28
PROVIDERS: ATTEND Nurse Practitioner
DX: G40.89 Other seizures (principal); E10.649 Type 1 diabetes mellitus with hypoglycemia without coma
CPT/HCPCS: A0998

== ENCOUNTER → 2019-04-14 | Outpatient (CLI) | payer OTHER ==
[2017-11-24 08:26] VITALS: BMI 19.9
== END ==
LOC: AMB 05:49
PROVIDERS: ATTEND Nurse Practitioner
DX: E10.649 Type 1 diabetes mellitus with hypoglycemia without coma (principal)
CPT/HCPCS: A0998

== ENCOUNTER → 2019-05-24 | Outpatient (CLI) | payer OTHER ==
[2017-11-24 08:26] VITALS: BMI 19.9
== END ==
LOC: AMB 04:01
PROVIDERS: ATTEND Nurse Practitioner
DX: R41.82 Altered mental status, unspecified (principal)
CPT/HCPCS: A0998